=== PATIENT | female | born 1945 | race Caucasian/White ===

== ENCOUNTER → 2018-06-12 09:43 | Outpatient (CLI) | payer MEDICARE, BC, SELFPAY | PROVIDERS: PCP Family Medicine; Visit Provider Orthopaedic Surgery | DX: M17.0 Bilateral primary osteoarthritis of knee (principal) | CPT/HCPCS: 20610; 99213; J7325 ==

== ENCOUNTER → 2018-07-30 08:33 | Outpatient (BNVA) | payer MEDICARE, BC, SELFPAY | PROVIDERS: PCP Family Medicine; Referring Provider Family Medicine; Visit Provider Orthopaedic Surgery | DX: M70.62 Trochanteric bursitis, left hip (principal) | CPT/HCPCS: 20610; 99211; 99213; J1040 ==

== ENCOUNTER 2018-08-10 00:15 | Outpatient (CLI) | payer MEDICARE, BC, SELFPAY ==
--- NOTE | 2018-08-10 06:57 | DI.US_ITS ---
SYMPTOM/DIAGNOSIS: RUQ PAIN, NAUSEA, VOMITING, R10.11 ABDOMINAL ULTRASOUND: The visualized liver parenchyma is normal in appearance. There is no evidence of cholelithiasis. The common bile duct is of normal diameter. The pancreas and spleen appear intact. No renal abnormality is seen. The abdominal aorta is of normal diameter. Normal appearance of IVC. CONCLUSION: Normal abdominal ultrasound. No evidence of cholelithiasis.
[2018-08-10 08:12] LABS: Abs Immature Grans 0.01 k/cumm (0.0-0.09); Absolute Basophil Count 0.04 k/cumm (0.0-0.2); Absolute Lymphocyte Count 1.72 k/cumm (1.2-3.4); Absolute Monocyte Count 0.47 k/cumm (0.11-0.7); Absolute Neutrophil Count 1.53 k/cumm (1.2-6.7); Eosinophils % 9.6; HCT 40.9 % (36.0-46.0); Immature Grans % 0.2; Lymphocytes % 41.2; Mean Corp. HGB Concentration 31.8 g/dL (32.0-36.0); Mean Corpuscular Hemoglobin 28.5 pg (27.0-33.0); Mean Corpuscular Volume 89.7 fL (80-95); Mean Platelet Volume 10.4 fL (8.0-11.0); Monocytes % 11.3; Neutrophils % 36.7; Platelet Count 226 x1000/uL (130-400); RBC 4.56 m/cumm (4.00-5.20); RBC Distribution Width 12.9 % (11.7-14.6); White Blood Cell Count 4.17 k/cumm (4.4-10.8)
[2018-08-10 09:05] LABS: ALT 26 U/L (12-78); AST 21 U/L (15-37); Albumin 3.3 g/dL (3.4-5.0); Alkaline Phosphatase 85 U/L (46-116); Anion Gap 8.2 mmol/L (3-11); BUN 11 mg/dL (7-18); Bilirubin, Total 0.8 mg/dL (0.2-1.0); CO2 27.8 mmol/L (21.0-32.0); CREATININE 0.89 mg/dL (0.55-1.02); Calcium 8.9 mg/dL (8.5-10.1); Chloride 105 mmol/L (98-107); Glucose 79 mg/dL (70-100); Lipase 99 U/L (73-393); Potassium 4.2 mmol/L (3.5-5.1); Sodium 141 mmol/L (136-145); Total Protein 6.6 g/dL (6.4-8.2)
== END 2018-08-10 00:35 ==
PROVIDERS: PCP Family Medicine; Visit Provider Family Medicine
DX: R10.11 Right upper quadrant pain (principal); R11.2 Nausea with vomiting, unspecified
CPT/HCPCS: 36415; 80053; 83690; 76700; 85025

== ENCOUNTER 2018-09-27 12:40 | Outpatient (REF) | payer MEDICARE, BC, SELFPAY ==
[2018-09-27 15:06] LABS: Bilirubin Negative (Negative); Blood Trace-lysed (Negative); Clarity Clear; Glucose Negative (Negative); Ketones Negative (Negative); Leukocyte Esterase Large (Negative); Nitrite Negative (Negative); Specific Gravity <= 1.005 (1.005-1.025); Urobilinogen 0.2 EU/dL (Up TO 0.2); pH 6.5 (5-8)
[2018-09-27 15:11] LABS: Bacteria Moderate HPF (Negative); C & S Indicated? Yes; Casts Negative LPF (Negative); Crystals Negative HPF (Negative); Epithelial Cells Rare HPF (Negative); Mucus Negative (Negative); WBC >50 HPF (0-5)
== END 2018-09-27 13:00 ==
LOC: LBN 12:40
PROVIDERS: PCP Family Medicine; Visit Provider Family Medicine
DX: R35.0 Frequency of micturition (principal)
CPT/HCPCS: 87077; 81003; 81015; 87086; 87186

== ENCOUNTER → 2018-10-30 09:54 | Outpatient (BNVA) | payer MEDICARE, BC, SELFPAY | PROVIDERS: PCP Family Medicine; Referring Provider Family Medicine; Visit Provider Orthopaedic Surgery | DX: M70.62 Trochanteric bursitis, left hip (principal) | CPT/HCPCS: 20610; 99211; 99213; J1040 ==

== ENCOUNTER → 2018-12-11 10:10 | Outpatient (BNVA) | payer MEDICARE, BC, SELFPAY | PROVIDERS: PCP Family Medicine; Visit Provider Orthopaedic Surgery | DX: M17.11 Unilateral primary osteoarthritis, right knee (principal); M17.12 Unilateral primary osteoarthritis, left knee | CPT/HCPCS: 20610; 99211; 99213; J7325 ==

== ENCOUNTER 2018-12-17 12:01 | Outpatient (CLI) | payer MEDICARE, BC, SELFPAY ==
[2018-12-17 13:36] LABS: Hemoglobin A1C 5.5 % (4.5-6.2)
[2018-12-17 13:47] LABS: ALT 26 U/L (12-78); AST 19 U/L (15-37); Albumin 3.4 g/dL (3.4-5.0); Alkaline Phosphatase 93 U/L (46-116); Anion Gap 9.6 mmol/L (3-11); BUN 14 mg/dL (7-18); Bilirubin, Total 0.3 mg/dL (0.2-1.0); CO2 27.4 mmol/L (21.0-32.0); CREATININE 0.83 mg/dL (0.55-1.02); Calcium 8.4 mg/dL (8.5-10.1); Chloride 104 mmol/L (98-107); Glucose 102 mg/dL (70-100); Potassium 4.4 mmol/L (3.5-5.1); Sodium 141 mmol/L (136-145); TSH (W/Ref FT4) 2.04 uIU/mL (0.358-3.74); Total Protein 6.8 g/dL (6.4-8.2)
[2018-12-17 14:58] LABS: Bilirubin Negative (Negative); Blood Negative (Negative); Clarity Clear; Glucose Negative (Negative); Ketones Negative (Negative); Leukocyte Esterase Negative (Negative); Nitrite Negative (Negative); Urobilinogen 0.2 EU/dL (Up TO 0.2)
== END 2018-12-17 12:21 ==
PROVIDERS: PCP Family Medicine; Visit Provider Family Medicine
DX: R73.09 Other abnormal glucose (principal)
CPT/HCPCS: 36415; 80053; 81003; 83036; 84443

== ENCOUNTER → 2019-01-28 09:50 | Outpatient (BNVA) | payer MEDICARE, BC, SELFPAY | PROVIDERS: PCP Family Medicine; Referring Provider Family Medicine; Visit Provider Orthopaedic Surgery | DX: M70.62 Trochanteric bursitis, left hip (principal) | CPT/HCPCS: 20610; 99211; 99212; J1040 ==

== ENCOUNTER → 2019-05-16 11:15 | Outpatient (BNVA) | payer MEDICARE, BC, SELFPAY | PROVIDERS: Referring Provider Family Medicine; Visit Provider Orthopaedic Surgery | DX: M70.62 Trochanteric bursitis, left hip (principal) | CPT/HCPCS: 20610; 99211; 99213; J1040 ==

== ENCOUNTER → 2019-06-11 09:51 | Outpatient (BNVA) | payer MEDICARE, BC, SELFPAY | PROVIDERS: Referring Provider Family Medicine; Visit Provider Orthopaedic Surgery | DX: M17.11 Unilateral primary osteoarthritis, right knee (principal); M17.12 Unilateral primary osteoarthritis, left knee | CPT/HCPCS: 20610; 99211; 99213; J7325 ==

== ENCOUNTER 2019-10-29 01:22 | Outpatient (CLI) | payer MEDICARE, BC, SELFPAY ==
--- NOTE | 2019-10-29 11:27 | DI.MRI_ITS ---
EXAM: MR LUMBAR SPINE WO CLINICAL HISTORY: WORSENING LBP/WEAKNESS IN LT LEG AND INCONTINENCE, RADICULOPATHY LUMBAR REGION, M5 4.16, R32, R29.898. TECHNIQUE: Multiplanar multisequence MRI was performed. COMPARISON: MRI - LUMBAR SPINE W/WO CONT from 12/22/2015 MRI - LUMBAR SPINE WO CONTRAST from 01/17/2017 FINDINGS: There is a prominent levoscoliosis with the apex at L3-4. The conus medullaris is unremarkable. The T12-L1 through L1-2 discs show mild bulging. There is mil d bilateral neural foraminal narrowing at these levels. There are mild degenerative changes at L2-3. At L3-4, there is asymmetric narrowing of the disc, which is eccentric toward the right where there are large osteophytes. There are also right-sided facet degenerative changes, which cause severe ne ural foraminal narrowing. At L4-5, there has been a previous laminectomy. At L5-S1, there is mild l oss of disc height and broad-based disc bulging. There is a small laminectomy defect. There is mild -to-moderate central canal stenosis. There is severe left neural foraminal narrowing. No disc herni ation is seen at any level. A nerve root sheath cyst is seen at S2 on the left. IMPRESSION: Degenerative disc changes and facet degenerative changes cause multilevel neural foraminal narrowing, greatest on the left at L4-5 and L5-S1. There is [id number] central canal stenosis at L5-S1.
== END 2019-10-29 01:42 ==
PROVIDERS: PCP Family Medicine; Visit Provider Family Medicine
DX: M54.5 Low back pain (principal); M54.16 Radiculopathy, lumbar region; R32 Unspecified urinary incontinence; R29.898 Other symptoms and signs involving the musculoskeletal system; M51.17 Intervertebral disc disorders with radiculopathy, lumbosacral region; M47.27 Other spondylosis with radiculopathy, lumbosacral region; Z98.1 Arthrodesis status
CPT/HCPCS: 72148

== ENCOUNTER → 2019-12-13 09:56 | Outpatient (BNVA) | payer MEDICARE, BC, SELFPAY | PROVIDERS: PCP Family Medicine; Referring Provider Family Medicine; Visit Provider Student in an Organized Health Care Education/Training Program | DX: M17.12 Unilateral primary osteoarthritis, left knee (principal); M17.11 Unilateral primary osteoarthritis, right knee | CPT/HCPCS: 20610; 99214; J7325 ==

== ENCOUNTER 2020-03-05 08:37 | Outpatient (CLI) | payer MEDICARE, BC, SELFPAY ==
[2020-03-05 09:06] VITALS: BP 110/70; PULSE 83; RESP 17; TEMP 36.7; O2SAT 96
--- NOTE | 2020-03-05 09:30 | DI.RAD_ITS ---
EXAM: XR PAIN CLINIC SACRIOILIAC 2V CLINICAL HISTORY: Dx:Sacroiliac Joint Dysfunction TECHNIQUE: 2D and realtime digital imaging was performed. Fluoroscopy was provided in the OR COMPARISON: No exams were available for comparison FINDINGS: C-arm fluoroscopy was utilized by Dr. Mujica during SI joint injection. Hard copy shows injection in t he left SI joint. Fluoro time was 41.5 seconds. IMPRESSION: RADIATION DOSE DELIVERED: Total DLP
--- NOTE | 2020-03-05 09:55 | PDOC.PAIN_ITS ---
Pain Clinic Procedure Note Procedure Note Procedure Note: INTRA-ARTICULAR SI JOINT INJECTION SILVIO RAMIREZ has been referred to the [facility] for intra- articular SI joint injection. COMMENTS: The patient was initially scheduled for a left L5 transforaminal CRYS. In talking with her prior to the procedure, she states that 95% of her pain is at the left sacroiliac joint. She points directly at the left SIJ. We discussed changing the procedure to a left SIJ injection and she consented. Dx: Left sacroiliac joint dysfunction Patient was interviewed and the medical record reviewed. There were no medical, pharmacologic, radiographic or other structural contraindications to attempting fluoroscopically guided intra-articular SI joint injection. Risks and expected side effects as well as potential benefit of the procedure were reviewed and voiced concerns addressed. The printed consent form was signed and witnessed. Standard time-out procedure was performed. Patient was placed in the prone position on the fluoroscopy table and automated blood pressure cuff and pulse oximeter applied. The skin entry point for approaching left SI joint was identified under the most advantageous fluoroscopic view and marked. Following thorough Chlorhexadine preparation of the skin and draping and 1% lidocaine infiltration of the skin entry point and subcutaneous tissues, a 22 gauge spinal needle was placed under fluoroscopic guidance into left SI joint. Intra-articular placement was confirmed by a clear arthrogram resulting from the injection of 0.25ml Omnipaque 240, 1ml 1% lidocaine, and 40mg Depomedrol were injected intra-articularily with an initial reproduction of a significant component of the usual pain. Vital signs were stable throughout the procedure and were as recorded in the docflowsheet by the nursing staff. If given, dosages of intravenous drugs for anxiolysis and analgesia were documented in MAR. Follow up plans and appointments were discussed with the patient. Post procedure instruction was given as documented in nursing documentation and having met discharge criteria, and was discharged from the [facility]. COMMENTS: She did exceedingly well with the procedure. CC: Sallie Babcock MD, DC
[2020-03-05 09:58] VITALS: BP 121/73; PULSE 80; RESP 19; O2SAT 100
[2020-03-05] MEDS: methylPREDNISolone ACETATE 40 MG/ML VIAL IJ (09:59)
[2020-03-05] MEDS: Omnipaque 240 MG/ML 50 ML BTL IJ (10:00)
== END 2020-03-05 08:57 ==
PROVIDERS: PCP Family Medicine; Visit Provider Preventive Medicine Occupational Medicine
DX: M53.3 Sacrococcygeal disorders, not elsewhere classified (principal)
CPT/HCPCS: 27096; 72200; J1030; Q9967

== ENCOUNTER 2020-04-14 00:40 | Outpatient (CLI) | payer MEDICARE, BC, SELFPAY ==
--- NOTE | 2020-04-14 11:55 | DI.MAMMO_ITS ---
EXAM: MG MAMMO SCREENING CLINICAL HISTORY: screening, Z12.39 TECHNIQUE: Mammograms were interpreted according to the usual protocol including computer analysis w [employer] system, tomosynthesis and C-view imaging. COMPARISON: FINDINGS: The breasts are of moderate density with fairly symmetrical distribution of fibroglandular tissue. N o dominant mass or clumped microcalcification is identified in either breast. The current examinatio n is compared with the prior studies including December 2017 and there has been no gross interval change in appearance comparison with the previous examinations. IMPRESSION: No specific evidence of malignancy at this time. Routine screening examinations are suggested at yea rly intervals in this age group according to the ACS ACR guidelines. BI-RADS Cat 1 - Negative: Breast Density - Category B - Scattered areas of fibroglandular density:
== END 2020-04-14 01:00 ==
PROVIDERS: PCP Family Medicine; Visit Provider Family Medicine
DX: Z12.31 Encounter for screening mammogram for malignant neoplasm of breast (principal)
CPT/HCPCS: 77063; 77067

== ENCOUNTER 2020-04-23 07:36 | Outpatient (CLI) | payer MEDICARE, BC, SELFPAY ==
--- NOTE | 2020-04-23 06:00 | DI.RAD_ITS ---
EXAM: XR PAIN CLINIC LUMBAR SP 2V CLINICAL HISTORY: Dx: Lumbar Radiculopathy TECHNIQUE: 2D and realtime digital imaging was performed. CONTRAST MATERIAL: Refer to procedure report. COMPARISON: No exams were available for comparison FINDINGS: Fluoroscopy was provided for Dr. Mujica during the performance of a lumbar epidural steroid injection. Please refer to the procedure report for complete details. Fluoro time: 25 seconds IMPRESSION:
[2020-04-23 07:47] VITALS: BP 111/71; PULSE 78; RESP 17; TEMP 36.8; O2SAT 98
[2020-04-23 08:44] VITALS: BP 122/65; PULSE 75; RESP 13; O2SAT 99
--- NOTE | 2020-04-23 08:47 | PDOC.PAIN ---
Pain Clinic Procedure Note Procedure Note Procedure Note: LUMBAR / SACRAL TRANSFORAMINAL INJECTION at the left L5 SILVIO RAMIREZ has been referred to the [facility] for a transforaminal nerve root block and steroid injection. COMMENTS: I did review Ms. Minor's evaluation from 01/01/20 and the patient's lumbar spine MRI from 10/29/19. DX: Lumbosacral radiculopathy Patient was interviewed and the medical record reviewed. There were no medical, pharmacologic, radiographic or other structural contraindications to attempting fluoroscopically guided transforaminal nerve root block and epidural steroid injection. Risks and expected side effects as well as potential benefit of the procedure were reviewed and voiced concerns addressed. The printed consent form was signed and witnessed. Standard time-out procedure was performed. Patient was placed in the prone position on the fluoroscopy table and automated blood pressure cuff and pulse oximeter applied. Fluoroscopy was utilized to identify the left X2eessym foramen between L5 and S1. A skin cecile was made for the needle insertion site. A Chlorhexadine prep was carried out, and sterile drapes were applied. Local anesthesia was achieved in the skin and subcutaneous tissues. A 22 gauge curved tip spinal needle was then inserted, advanced with fluoroscopic guidance into the neural foramen, confirmed on the lateral view. After negative aspiration, 2 ml of Omnipaque 240 was injected confirming position in A/P and lateral views. This showed a good spread of dye transforaminally into the epidural space. There was no vascular update with contrast injection under continuous fluoroscopy. 15 mg of Dexamethasone was injected, followed by 0.5 ml of 1% Xylocaine flush for the nerve root block, as well. There was no unusual discomfort expressed.The needle was withdrawn. The patient tolerated the procedure well. A Band-Aid was applied. Vital signs were stable throughout the procedure and were as recorded in nursing records. If given, dosages of intravenous drugs for anxiolysis and analgesia were documented in nursing records. Follow up plans and appointments were discussed. Post procedure instruction was given as documented in nursing records and patient was discharged in the care of an identified fire truck driver. COMMENTS:She tolerated the procedure well. If she has good relief with this procedure, it can be completed up to 3 times per 12 months as needed. CC: Sallie Babcock MD, DC
[2020-04-23] MEDS: Dexamethasone Sod. Phos./Pres-Free 10 MG/ML VIAL IJ (08:48)
[2020-04-23] MEDS: Omnipaque 240 MG/ML 50 ML BTL IJ (08:48)
== END 2020-04-23 07:56 ==
PROVIDERS: PCP Family Medicine; Visit Provider Preventive Medicine Occupational Medicine
DX: M54.17 Radiculopathy, lumbosacral region (principal)
CPT/HCPCS: 64483; 72100; Q9967

== ENCOUNTER → 2020-05-18 14:44 | Outpatient (BNVA) | payer MEDICARE, BC, SELFPAY | PROVIDERS: PCP Family Medicine; Referring Provider Family Medicine; Visit Provider Student in an Organized Health Care Education/Training Program | DX: M25.552 Pain in left hip (principal); M70.62 Trochanteric bursitis, left hip | CPT/HCPCS: 20610; 99213; J1040 ==

== ENCOUNTER 2020-06-04 03:25 | Outpatient (CLI) | payer MEDICARE, BC, SELFPAY ==
[2020-06-04 12:29] LABS: Hemoglobin A1C 5.6 % (3.8-5.6)
[2020-06-04 12:57] LABS: TSH (W/Ref FT4) 2.41 uIU/mL (0.36-3.74); Vitamin B12 1843 pg/mL (193-986)
== END 2020-06-04 03:45 ==
PROVIDERS: PCP Family Medicine; Visit Provider Family Medicine
DX: E11.9 Type 2 diabetes mellitus without complications (principal); F41.9 Anxiety disorder, unspecified; M85.80 Other specified disorders of bone density and structure, unspecified site; G62.9 Polyneuropathy, unspecified
CPT/HCPCS: 80048; 82306; 82607; 83036; 84443

== ENCOUNTER 2020-06-15 10:39 | Outpatient (CLI) | payer MEDICARE, BC, SELFPAY ==
--- NOTE | 2020-06-15 10:15 | DI.RAD_ITS ---
EXAM: XR KNEE LT 4V AP,LAT,CRYSTAL,PAT CLINICAL HISTORY: left knee pain TECHNIQUE: COMPARISON: CR RIGHT KNEE 3 VIEWS from 08/26/2013 FINDINGS: Four views were obtained. There appears to be slight narrowing of the cartilaginous joint space of t he patello femoral joint laterally and there is slight lateral patellar subluxation. There is modera te narrowing of the medial tibial femoral cartilaginous joint space. There are moderate marginal osteophytes seen involving the tibial femoral and patello femoral joints. IMPRESSION: Degenerative changes most marked involving medial tibiofemoral joint RADIATION DOSE DELIVERED: Total DLP
== END 2020-06-15 10:59 ==
PROVIDERS: PCP Family Medicine; Referring Provider Family Medicine; Visit Provider Student in an Organized Health Care Education/Training Program
DX: M17.12 Unilateral primary osteoarthritis, left knee (principal); M17.11 Unilateral primary osteoarthritis, right knee
CPT/HCPCS: 20610; 99213; 73564; J7325

== ENCOUNTER → 2020-07-14 08:17 | Outpatient (BNVA) | payer MEDICARE, BC, SELFPAY | PROVIDERS: PCP Family Medicine; Referring Provider Family Medicine; Visit Provider Psychiatry & Neurology Neurology | DX: M48.061 Spinal stenosis, lumbar region without neurogenic claudication (principal); M54.16 Radiculopathy, lumbar region; M21.372 Foot drop, left foot | CPT/HCPCS: 95885; 95886; 95909; 99204; 99215 ==

== ENCOUNTER → 2020-08-20 09:16 | Outpatient (BNVA) | payer MEDICARE, BC, SELFPAY | PROVIDERS: PCP Family Medicine; Referring Provider Family Medicine; Visit Provider Student in an Organized Health Care Education/Training Program | DX: M70.62 Trochanteric bursitis, left hip (principal) | CPT/HCPCS: 99213 ==

== ENCOUNTER 2020-09-11 04:19 | Outpatient (CLI) | payer MEDICARE, BC, SELFPAY ==
--- NOTE | 2020-09-11 14:10 | DI.RAD_ITS ---
EXAM: XR LUMBAR SPINE COMPLETE CLINICAL HISTORY: LT LEG PAIN,NUMBNESS, BACK PAIN,R20. TECHNIQUE: 2D digital imaging was performed. COMPARISON: No exams were available for comparison FINDINGS: Flexion and extension views were performed in addition to the routine views. There are no compressi on fractures. No spondylolysis or spondylolisthesis is seen. There is no subluxation with flexion o r extension. There has been previous laminectomy at L4 and L5. There are severe degenerative change s at L3-4 on the right contributing to levoscoliosis. There are prominent endplate osteophytes at th is level on the right. Smaller osteophytes are seen at the remaining levels. Remaining disc spaces are relatively well maintained. IMPRESSION: Degenerative changes greatest at L3-4. Scoliosis. Prior laminectomy.
== END 2020-09-11 04:39 ==
PROVIDERS: PCP Family Medicine; Visit Provider Physician Assistant Medical
DX: M47.816 Spondylosis without myelopathy or radiculopathy, lumbar region (principal); R20.0 Anesthesia of skin; M41.9 Scoliosis, unspecified
CPT/HCPCS: 72110

== ENCOUNTER 2020-09-30 01:42 | Outpatient (CLI) | payer MEDICARE, BC, SELFPAY ==
--- NOTE | 2020-09-30 | DI.MRI_ITS ---
EXAM: MR LUMBAR SPINE WO CLINICAL HISTORY: LEG NUMBNESS,R20.0,LT LEG PAIN, FOOT DROP. TECHNIQUE: Multiplanar multisequence MRI of the Lumbar spine was performed. COMPARISON: MR MR LUMBAR SPINE WO from 10/29/2019 MR MR LUMBAR SPINE WO from 10/29/2019 FINDINGS: Again noted scoliosis convex left PE Conus medullaris is at the L1 level. There is no evidence of conus mass nor subjacent clumping of in trathecal nerve roots to suggest arachnoiditis. 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 Bones:There are no fractures nor ominous osseous lesions in the lumbar vertebral bodies. With respect to the individual levels... T12-L1: Normal disc height. Mild annular bulging. No prominent central canal stenosis. Mild bilate ral foraminal stenosis. L1-2: Normal disc height and signal. No disc herniation nor central canal stenosis.No foraminal steno sis. No significant facet arthropathy L2-3: Normal disc height. No disc herniation nor central canal stenosis.No foraminal stenosis.No face t arthropathy. L3-4: At this level there is again noted advanced disc space narrowing, more so on the right than on the left side of this disc space. There is annular bulging at this level which flattens the anterior aspect the thecal sac, unchanged. No new distinct disc herniation. There is moderate right-sided f oraminal stenosis which is mostly vertical foraminal stenosis due to the more prominent disc height l oss on the right side of the disc space. Only mild if any significant left-sided foraminal stenosis. The amount of degenerative change in the right facet joint at this level is more than the left. Findings at this level are similar to the October 2019 study. L4-5: Normal disc height.. Broad annular bulging also evident at this level. No central canal steno sis at this level which has had prior laminectomy. The central spinal canal is capacious. Mild dege nerative changes in the facet joints. There is mild-moderate foraminal stenosis on the left side at this level. No significant foraminal stenosis on the right side at this level. Some degenerative ch anges are noted in the left facet joint. Milder degenerative changes in the right facet joint. L5-S1: Disc space narrowing on the left side of this disc space with lateral left osteophytes again n oted at this level. Central canal dimensions are lower normal. Are, this despite bulging annulus. The annulus bulges into the exiting left neural foramen at this level. There is moderate-severe left -sided foraminal stenosis due to the disc height loss and with impingement of the exiting nerve root between the subjacent bulging annulus and the overlying left L5 pedicle. No foraminal stenosis on th e opposite-right side. This finding is also unchanged from October 2019. Soft tissues: The visualized SI joints and sacrum appear unremarkable. Paraspinal soft tissues appear unremarkable IMPRESSION: 1. Minimal if any significant change compared to the prior MRI scan of October 2019. Again noted is levo scoliosis with apex at L3-4 level. Previous laminectomy at L4-5 level. Most severe foraminal s tenosis is on the left side at L5-S1 level. There is also significant foraminal stenosis on the righ t side at L3-4 level. No prominent central canal stenosis. Mild central canal stenosis again noted at L5-S1. 2. 3. 4. DATA REPOSITORY:
== END 2020-09-30 02:02 ==
PROVIDERS: PCP Family Medicine; Visit Provider Neurological Surgery
DX: R20.0 Anesthesia of skin (principal); M41.86 Other forms of scoliosis, lumbar region; M48.07 Spinal stenosis, lumbosacral region; M48.061 Spinal stenosis, lumbar region without neurogenic claudication
CPT/HCPCS: 72148

== ENCOUNTER → 2020-10-08 10:04 | Outpatient (BNVA) | payer MEDICARE, BC, SELFPAY | PROVIDERS: PCP Family Medicine; Referring Provider Family Medicine; Visit Provider Nurse Practitioner Gerontology | DX: N39.46 Mixed incontinence (principal) | CPT/HCPCS: 81003; 99204; 99215 ==

== ENCOUNTER 2020-10-30 03:52 | Outpatient (CLI) | payer MEDICARE, BC, SELFPAY ==
[2020-10-30 12:11] LABS: ESR 17 mm/hr (0-30)
[2020-10-30 12:13] LABS: ALT 20 U/L (14-59); AST 18 U/L (15-37); Albumin 3.5 g/dL (3.4-5.0); Alkaline Phosphatase 111 U/L (46-116); Anion Gap 7.3 mmol/L (3-11); BUN 10 mg/dL (7-18); Bilirubin, Total 0.5 mg/dL (0.2-1.0); C-Reactive Protein 0.28 mg/dL (0.0-0.3); CO2 28.7 mmol/L (21.0-32.0); CREATININE 0.88 mg/dL (0.55-1.02); Chloride 106 mmol/L (98-107); Glucose 92 mg/dL (74-106); Potassium 4.1 mmol/L (3.5-5.1); Sodium 142 mmol/L (136-145); Total Protein 6.8 g/dL (6.4-8.2)
[2020-11-02 10:21] LABS: Lyme Ab w Rflx to Lyme Confirm Negative (Negative)
[2020-11-16 16:22] LABS: ACh Receptor (Muscle) Binding 2.34 nmol/L (<=0.02)
== END 2020-10-30 04:12 ==
PROVIDERS: PCP Family Medicine; Visit Provider Family Medicine
DX: G70.00 Myasthenia gravis without (acute) exacerbation (principal); H49.00 Third [oculomotor] nerve palsy, unspecified eye; H02.409 Unspecified ptosis of unspecified eyelid
CPT/HCPCS: 36415; 80053; 83519; 84182; 85652; 86341; 83520; 86140; 86618

== ENCOUNTER 2020-11-10 01:33 | Outpatient (CLI) | payer MEDICARE, BC, SELFPAY ==
--- NOTE | 2020-11-10 07:45 | DI.MRI_ITS ---
EXAM: MR ANGIO NECK WO CLINICAL HISTORY: myasthenia gravis/ ptosis/ ? CN III palsy,H49.03. TECHNIQUE: Multiplanar multisequence MRA of the Neck was performed. COMPARISON: No exams were available for comparison FINDINGS: Examination was performed without contrast due to lack of IV access despite multiple attempts. Common Carotid: Right: No dissection, occlusion or significant stenosis. Left: No dissection, occlusion or significant stenosis. External Carotid: Right: No evidence of occlusion or significant stenosis. Left: No evidence of occlusion or significant stenosis. Internal Carotid: Right: No dissection, occlusion or significant stenosis. Left: No dissection, occlusion or significant stenosis. Vertebral Artery: Right: No dissection, occlusion or significant stenosis. Left: No dissection, occlusion or significant stenosis. The visualized paraspinal soft tissues are unremarkable. IMPRESSION: No evidence of dissection, occlusion or significant stenosis. DATA REPOSITORY:
--- NOTE | 2020-11-10 10:00 | DI.MRI_ITS ---
CLINICAL HISTORY: ? myasthenia gravis/ ptosis of eyelid,NERVE PALSY BILAT,H49.03. TECHNIQUE: Multiplanar multisequence MRA of the brain was performed. COMPARISON: None. FINDINGS: Carotid Arteries: No aneurysm, occlusion or significant stenosis. Anterior Cerebral Arteries: Right: No aneurysm, occlusion or significant stenosis. Left: No aneurysm, occlusion or significant stenosis. Middle Cerebral Arteries: Right: No aneurysm, occlusion or significant stenosis. Left: No aneurysm, occlusion or significant stenosis. Posterior Cerebral Arteries: Right: No aneurysm, occlusion or significant stenosis. Left: No aneurysm, occlusion or significant stenosis. Vertebral Arteries: Right: No aneurysm, occlusion or significant stenosis. Left: No aneurysm, occlusion or significant stenosis. Basilar Artery: No aneurysm, occlusion or significant stenosis. IMPRESSION: Normal MRA examination of the [place]. DATA REPOSITORY:
== END 2020-11-10 01:53 ==
PROVIDERS: PCP Family Medicine; Visit Provider Family Medicine
DX: H49.03 Third [oculomotor] nerve palsy, bilateral (principal)
CPT/HCPCS: 70544; 70547; 82565

== ENCOUNTER 2020-11-18 11:18 | Outpatient (REF) | payer MEDICARE, BC, SELFPAY ==
[2020-11-18 14:16] LABS: Bilirubin Negative (Negative); Blood Trace-intact (Negative); Clarity Sl Cloudy (Clear); Glucose Negative (Negative); Ketones Negative (Negative); Leukocyte Esterase Moderate (Negative); Nitrite Negative (Negative); Specific Gravity 1.025 (1.005-1.025); Urobilinogen 0.2 EU/dL (Up TO 0.2)
[2020-11-18 14:29] LABS: Epithelial Cells Few HPF (Negative); WBC >50 HPF (0-5)
[2020-11-18 14:30] LABS: Bacteria Few HPF (Negative); C & S Indicated? Yes; Casts Negative LPF (Negative); Crystals Few Calcium Oxalate HPF (Negative); Mucus Trace (Negative); Other Cells Few Renal (Negative)
== END 2020-11-18 11:38 ==
LOC: LBN 11:18
PROVIDERS: PCP Family Medicine; Visit Provider Family Medicine
DX: R30.0 Dysuria (principal)
CPT/HCPCS: 81003; 81015; 87086

== ENCOUNTER → 2020-11-19 13:08 | Outpatient (BNVA) | payer MEDICARE, BC, SELFPAY | PROVIDERS: PCP Family Medicine; Referring Provider Family Medicine; Visit Provider Psychiatry & Neurology Neurology | DX: M48.061 Spinal stenosis, lumbar region without neurogenic claudication (principal); M21.372 Foot drop, left foot; G70.00 Myasthenia gravis without (acute) exacerbation; R32 Unspecified urinary incontinence | CPT/HCPCS: 99215; G2212 ==

== ENCOUNTER 2020-11-20 03:00 | Outpatient (CLI) | payer MEDICARE, BC, SELFPAY ==
--- NOTE | 2020-11-20 07:56 | DI.CT_ITS ---
EXAM: CT CHEST W CLINICAL HISTORY: r/o thyoma, new dx myasthenia gravis,H49.00,G70.00. TECHNIQUE: Multi planar reconstructions were performed. CONTRAST MATERIAL: Omnipaque 350; 70 cc COMPARISON: No exams were available for comparison FINDINGS: CHEST: LUNGS: Mild benign-appearing increased markings in the lingular segment of the left lung. No conflue nt infiltrates nor pleural effusions. No ominous pulmonary nodules. No significant focal findings i n the trachea and mainstem bronchi and there is no bronchiectasis. MEDIASTINUM: There is no hilar nor mediastinal adenopathy. Visualized thyroid unremarkable.There is n o evidence of anterior mediastinal mass to suggest presence of a thymoma, given the history here. CARDIAC: Heart size is normal. There is no pericardial effusion.Caliber of the thoracic aorta is wit hin normal limits. VISUALIZED UPPER ABDOMEN:There are no significant adrenal masses. OSSEOUS: No significant osseous lesions.. IMPRESSION: 1. No significant pulmonary findings nor pleural effusions nor intrathoracic adenopathy. 2. No evidence of thymoma nor other mass in the mediastinum. Visualized thyroid appears unremarkable . 3. No osseous lesions evident in the thorax. RADIATION DOSE DELIVERED: 426.4mGy.cm Total DLP DATA REPOSITORY: All CT scans at this facility are submitted to the National Radiology Data Registry (NRDR) Dose Index Registry (DIR) with the [employer] (ACR). RADIATION OPTIMIZATION: All CT scans at this facility use at least one of these dose optimization te chniques: automated exposure control; mA and/or kV adjustment per patient size (includes targeted exa ms where dose is matched to clinical indication); or iterative reconstruction.
[2020-11-20] MEDS: Omnipaque 350 MG/ML 100 ML BTL 70 ML IJ (10:33)
== END 2020-11-20 03:20 ==
PROVIDERS: PCP Family Medicine; Visit Provider Family Medicine
DX: G70.00 Myasthenia gravis without (acute) exacerbation (principal); H49.03 Third [oculomotor] nerve palsy, bilateral
CPT/HCPCS: 71260; J3490

== ENCOUNTER 2020-12-08 09:16 | Outpatient (CLI) | payer MEDICARE, BC, SELFPAY ==
--- NOTE | 2020-12-08 09:15 | RT.EKG_ITS ---
APPROVED REPORT Exam: Resting ECG Patient Location: O HR:76 bpm ECG Measurements Heart Rate 76 AXIS PA 157 P 57 QRSd 127 QRS 71 QT 397 T 26 QTc 447 Conclusion Sinus rhythm...normal P axis, V-rate 60- 99 Right bundle branch block...QRSd>120, terminal axis(90,270)
== END 2020-12-08 09:17 | disposition home or self-care (01) ==
LOC: DI.CM 09:16
PROVIDERS: PCP Family Medicine; Visit Provider Family Medicine
DX: I45.10 Unspecified right bundle-branch block (principal)
CPT/HCPCS: 93010

== ENCOUNTER 2020-12-10 02:42 | Outpatient (CLI) | payer MEDICARE, BC, SELFPAY ==
[2020-12-10 12:20] LABS: HCT 40.8 % (36.0-46.0); HGB 12.9 g/dL (11.2-15.7); MCH 28.9 pg (27.0-33.0); MCHC 31.6 % (32.0-36.0); MCV 91.3 fL (80-95); MPV 11.3 fL (8.0-11.0); Platelet Count 232 10^3/uL (130-400); RBC 4.47 10^6/uL (3.93-5.22); RDW 13.5 % (11.7-14.6); RDW-SD 46.1 fL; WBC 4.86 10^3/uL (4.4-10.8)
[2020-12-10 12:37] LABS: Anion Gap 8.8 mmol/L (3-11); BUN 10 mg/dL (7-18); CO2 28.2 mmol/L (21.0-32.0); CREATININE 0.8 mg/dL (0.55-1.02); Calcium 9.3 mg/dL (8.5-10.1); Chloride 106 mmol/L (98-107); Glucose 114 mg/dL (74-106); Potassium 4.1 mmol/L (3.5-5.1); Sodium 143 mmol/L (136-145)
== END 2020-12-10 02:43 | disposition home or self-care (01) ==
LOC: LOS 02:42
PROVIDERS: PCP Family Medicine; Visit Provider Family Medicine
DX: M54.5 Low back pain (principal); G89.29 Other chronic pain; M48.061 Spinal stenosis, lumbar region without neurogenic claudication; Z01.818 Encounter for other preprocedural examination
CPT/HCPCS: 36415; 80048; 85027

== ENCOUNTER → 2021-01-14 11:10 | Outpatient (BNVA) | payer MEDICARE, BC, SELFPAY | PROVIDERS: PCP Family Medicine; Visit Provider Psychiatry & Neurology Neurology | DX: G70.00 Myasthenia gravis without (acute) exacerbation (principal); M48.061 Spinal stenosis, lumbar region without neurogenic claudication; M21.372 Foot drop, left foot; R32 Unspecified urinary incontinence | CPT/HCPCS: 99214 ==

== ENCOUNTER 2021-01-28 01:22 | Outpatient (CLI) | payer MEDICARE, BC, SELFPAY ==
--- NOTE | 2021-01-28 10:31 | DI.RAD_ITS ---
EXAM: XR LUMBAR SPINE 1V ONLY CLINICAL HISTORY: S/P LUMBAR FUSION,Z98.1. TECHNIQUE: 2D digital imaging was performed. COMPARISON: CR XR LUMBAR SPINE COMPLETE from 09/11/2020 CR XR LUMBAR SPINE COMPLETE from 09/11/2020 MR MR LUMBAR SPINE WO from 09/30/2020 FINDINGS: A single lateral view was performed. Posterior fusion hardware is now seen spanning L3 through L5. Disc spaces are noted at L4-5 and L5-S1. Severe narrowing of the L3-4 disc space is again noted. No compression fractures are seen. IMPRESSION: Postsurgical and degenerative changes. DATA REPOSITORY: RADIATION DOSE DELIVERED:
== END 2021-01-28 01:42 ==
PROVIDERS: PCP Family Medicine; Visit Provider Physician Assistant Medical
DX: Z98.1 Arthrodesis status (principal)
CPT/HCPCS: 72020

== ENCOUNTER → 2021-02-25 14:31 | Outpatient (BNVA) | payer MEDICARE, BC, SELFPAY | PROVIDERS: PCP Family Medicine; Referring Provider Family Medicine; Visit Provider Nurse Practitioner Gerontology | DX: N39.46 Mixed incontinence (principal) | CPT/HCPCS: 99213 ==

== ENCOUNTER 2021-03-23 02:02 | Outpatient (CLI) | payer MEDICARE, BC, SELFPAY ==
--- NOTE | 2021-03-23 10:59 | DI.RAD_ITS ---
Exam(s) XR LUMBAR SPINE COMPLETE EXAM: XR LUMBAR SPINE COMPLETE CLINICAL HISTORY: S/P LUMBAR FUSION,Z98.1 TECHNIQUE: COMPARISON: CR XR LUMBAR SPINE COMPLETE from 09/11/2020 CR XR LUMBAR SPINE 1V ONLY from 01/28/2021 FINDINGS: Multiple views were obtained including flexion and extension laterals. There are Linder rods and disc prostheses in place at L4-5 and L5-S1. Alignment appears essentially unchanged in comparison w ith lateral view obtained on January 28. Marked lumbar scoliosis again noted. Intervertebral disc spaces appear fairly well maintained. Mode rate degenerative hypertrophic changes of the facet joints noted at multiple levels. Flexion and ext ension views are grossly unremarkable. IMPRESSION: No evidence of acute change. RADIATION DOSE DELIVERED: Total DLP
== END 2021-03-23 02:22 ==
PROVIDERS: PCP Family Medicine; Visit Provider Neurological Surgery
DX: M54.5 Low back pain (principal); Z98.1 Arthrodesis status; M41.86 Other forms of scoliosis, lumbar region
CPT/HCPCS: 72110

== ENCOUNTER → 2021-07-15 09:49 | Outpatient (BNVA) | payer MEDICARE, BC, SELFPAY | PROVIDERS: PCP Family Medicine; Referring Provider Family Medicine; Visit Provider Psychiatry & Neurology Neurology | DX: G70.00 Myasthenia gravis without (acute) exacerbation (principal); M48.061 Spinal stenosis, lumbar region without neurogenic claudication; M21.372 Foot drop, left foot; R32 Unspecified urinary incontinence | CPT/HCPCS: 99213 ==

== ENCOUNTER 2021-07-16 02:16 | Outpatient (CLI) | payer MEDICARE, BC, SELFPAY ==
[2021-08-24 12:08] LABS: Misc Referral (MAYO) See Comments
== END 2021-07-16 02:17 | disposition home or self-care (01) ==
LOC: LOS 02:19
PROVIDERS: PCP Family Medicine; Visit Provider Psychiatry & Neurology Neurology
DX: G70.00 Myasthenia gravis without (acute) exacerbation (principal)
CPT/HCPCS: 36415; 86255; 83519; 83520

== ENCOUNTER 2021-12-13 02:23 | Outpatient (CLI) | payer MEDICARE, BC, SELFPAY ==
[2021-12-13 11:38] LABS: Source Nasal/Nares
[2021-12-13 17:58] LABS: COVID-19 PCR Negative (Negative)
== END 2021-12-13 02:24 | disposition home or self-care (01) ==
PROVIDERS: PCP Family Medicine; Visit Provider Obstetrics & Gynecology Gynecology
DX: Z20.822 Contact with and (suspected) exposure to COVID-19 (principal); Z01.818 Encounter for other preprocedural examination
CPT/HCPCS: 87635; U0005

== ENCOUNTER 2021-12-23 03:48 | Outpatient (CLI) | payer MEDICARE, BC, SELFPAY ==
--- NOTE | 2021-12-23 10:39 | DI.RAD_ITS ---
Exam(s) XR LUMBAR SPINE FLEX/EXT ONLY EXAM: XR LUMBAR SPINE FLEX/EXT ONLY CLINICAL HISTORY: SPINAL STENOSIS W/ NEUROGENIC CLAUDICATION M48.062 TECHNIQUE: 2D digital imaging was performed. Flexion and extension lateral views. COMPARISON: CR XR LUMBAR SPINE COMPLETE from 03/23/2021 FINDINGS: Posterior fusion hardware spanning L4 through S1. Disc spacers at L4-5 and L5-S1. Hardware appears in tact and unchanged in position. Severe disc space narrowing is again seen at L3-4. No subluxation wit h flexion or extension. IMPRESSION: Stable appearance posterior fusion hardware at the lower lumbar spine.
== END 2021-12-23 04:08 ==
PROVIDERS: PCP Family Medicine; Visit Provider Neurological Surgery
DX: M48.062 Spinal stenosis, lumbar region with neurogenic claudication (principal); Z98.890 Other specified postprocedural states
CPT/HCPCS: 72120

== ENCOUNTER 2021-12-28 17:03 | Outpatient (REF) | payer MEDICARE, BC, SELFPAY ==
[2021-12-28 21:24] LABS: Bilirubin Negative (Negative); Blood Trace-lysed (Negative); Clarity Cloudy (Clear); Glucose Negative (Negative); Ketones Negative (Negative); Leukocyte Esterase Moderate (Negative); Nitrite Positive (Negative); Specific Gravity >= 1.030 (1.005-1.025); Urobilinogen 0.2 EU/dL (Up TO 0.2)
[2021-12-28 21:34] LABS: Epithelial Cells Moderate HPF (Negative); WBC >50 HPF (0-5)
[2021-12-28 21:35] LABS: Bacteria Many HPF (Negative); C & S Indicated? Yes
== END 2021-12-28 17:04 | disposition home or self-care (01) ==
LOC: LBN 17:03
PROVIDERS: PCP Family Medicine; Visit Provider Physician Assistant
DX: R39.9 Unspecified symptoms and signs involving the genitourinary system (principal)
CPT/HCPCS: 87077; 81003; 81015; 87086; 87186

== ENCOUNTER 2022-01-03 10:05 | Outpatient (CLI) | payer MEDICARE, BC, SELFPAY ==
[2022-01-03 13:38] LABS: ALT 21 U/L (14-59); AST 19 U/L (15-37); Albumin 3.5 g/dL (3.4-5.0); Alkaline Phosphatase 127 U/L (46-116); Anion Gap 6.5 mmol/L (3-11); BUN 11 mg/dL (7-18); Bilirubin, Total 0.3 mg/dL (0.2-1.0); CO2 28.5 mmol/L (21.0-32.0); CREATININE 0.8 mg/dL (0.55-1.02); Chloride 106 mmol/L (98-107); Glucose 89 mg/dL (74-106); Potassium 4.8 mmol/L (3.5-5.1); Sodium 141 mmol/L (136-145); Total Protein 7.2 g/dL (6.4-8.2)
== END 2022-01-03 10:06 | disposition home or self-care (01) ==
LOC: LBO 10:06
PROVIDERS: PCP Family Medicine; Visit Provider Family Medicine
DX: G70.00 Myasthenia gravis without (acute) exacerbation (principal); N39.0 Urinary tract infection, site not specified
CPT/HCPCS: 36415; 80053

== ENCOUNTER 2022-01-10 02:31 | Outpatient (RCR) | payer MEDICARE, BC, SELFPAY ==
[2022-01-04] MEDS: Normal Saline Flush 10 ML SYR IVP (13:16)
[2022-01-05] MEDS: Normal Saline Flush 10 ML SYR IVP (13:17)
[2022-01-05 17:44] LABS: Tobramycin, Random 9.4 ug/mL (See Note)
[2022-01-06] MEDS: Normal Saline Flush 10 ML SYR IVP (13:18)
[2022-01-07] MEDS: Normal Saline Flush 10 ML SYR IVP (13:43)
[2022-01-08] MEDS: Normal Saline Flush 10 ML SYR IVP (15:14)
[2022-01-10] MEDS: Normal Saline Flush 10 ML SYR IVP (13:36)
== END 2022-01-20 23:59 | disposition home or self-care (01) ==
LOC: INF 02:31
PROVIDERS: PCP Family Medicine; Visit Provider Family Medicine
DX: N39.0 Urinary tract infection, site not specified (principal); B96.5 Pseudomonas (aeruginosa) (mallei) (pseudomallei) as the cause of diseases classified elsewhere; G70.00 Myasthenia gravis without (acute) exacerbation
CPT/HCPCS: 96365; 96366; 80200

== ENCOUNTER → 2022-01-13 09:42 | Outpatient (BNVA) | payer MEDICARE, BC, SELFPAY | PROVIDERS: PCP Family Medicine; Visit Provider Psychiatry & Neurology Neurology | DX: M48.061 Spinal stenosis, lumbar region without neurogenic claudication (principal); M21.372 Foot drop, left foot; R32 Unspecified urinary incontinence; G70.00 Myasthenia gravis without (acute) exacerbation | CPT/HCPCS: 99214 ==

== ENCOUNTER 2022-03-17 11:58 | Outpatient (CLI) | payer MEDICARE, BC, SELFPAY ==
--- NOTE | 2022-03-17 11:45 | DI.RAD_ITS ---
Exam(s) XR KNEE RT 3V AP,LAT,CRYSTAL EXAM: XR KNEE RT 3V AP,LAT,CRYSTAL CLINICAL HISTORY: right knee pain. TECHNIQUE: 2D digital imaging was performed of the right knee. Three views obtained. AP, lateral an d PA tunnel views were obtained. COMPARISON: CR XR KNEE LT 4V AP,LAT,CRYSTAL,PAT from 06/15/2020 FINDINGS: BONES: No acute fracture is present. No bony destructive lesion is seen. There is a small enthesophyt e at the superior patella. JOINTS: The knee is normally aligned. There is a small joint effusion. Tricompartment degenerative c hanges are seen predominantly involving periarticular spurring. SOFT TISSUE: Normal. IMPRESSION: Mild degenerative changes of the knee. DATA REPOSITORY: RADIATION DOSE DELIVERED:
== END 2022-03-17 11:59 | disposition home or self-care (01) ==
LOC: DIORS 11:58
PROVIDERS: PCP Family Medicine; Referring Provider Family Medicine; Visit Provider Physician Assistant
DX: M17.11 Unilateral primary osteoarthritis, right knee (principal); M17.12 Unilateral primary osteoarthritis, left knee
CPT/HCPCS: 20610; 73562; J7325

== ENCOUNTER 2022-03-20 12:01 | Emergency (ER) | payer MEDICARE, BC, SELFPAY ==
[2022-03-20 12:14] VITALS: BP 142/74; PULSE 78; RESP 16; TEMP 37.2; O2SAT 96
--- NOTE | 2022-03-20 12:30 | DI.RAD_ITS ---
Exam(s) XR KNEE RT 4V+ EXAM: XR KNEE RT 4V+ CLINICAL HISTORY: fall. TECHNIQUE: 2D digital imaging was performed of the right knee. Four views obtained. AP, lateral, Me rchant and PA tunnel views were obtained. COMPARISON: CR XR KNEE RT 3V AP,LAT,CRYSTAL from 03/17/2022 FINDINGS: BONES: No acute fracture is present. No bony destructive lesion is seen. JOINTS: The knee is normally aligned. There is a small joint effusion. Mild tricompartment degenerat keith changes are again seen. SOFT TISSUE: Normal. IMPRESSION: No acute fracture or dislocation. DATA REPOSITORY: RADIATION DOSE DELIVERED:
--- NOTE | 2022-03-20 12:30 | DI.RAD_ITS ---
Exam(s) XR HIP RT COMPLETE AP PELVIS EXAM: XR HIP RT COMPLETE AP PELVIS CLINICAL HISTORY: fall pain. TECHNIQUE: 2D digital imaging was performed of the right hip. Three images were obtained. AP pelvis and lateral right hip views were obtained. FINDINGS: BONES: No acute fracture is present. No bony destructive lesion is seen. Postsurgical changes in the lumbar spine. Surgical clips are seen in the pelvis. JOINTS: No dislocation present. SOFT TISSUE: Normal. IMPRESSION: No acute fracture or dislocation. DATA REPOSITORY: RADIATION DOSE DELIVERED:
[2022-03-20] MEDS: HYDROcodone 5/Acetaminophen 325 TAB PO ×2 (12:43→14:10)
--- NOTE | 2022-03-20 13:46 | DI.VRAD_ITS ---
PROCEDURE INFORMATION: Exam: XR Right Knee Exam date and time: 03/20/2022 1:21 PM Age: 77 years old Clinical indication: Injury or trauma; Fall; Blunt trauma; Knee; Right TECHNIQUE: Imaging protocol: XR Right knee. Views: 4 or more views. COMPARISON: CR XR KNEE RT 3V AP,LAT,CRYSTAL 03/17/2022 11:58 AM FINDINGS: Bones/joints: Medial compartment narrowing. Narrowed medial patellofemoral joint. Small tricompartment marginal osteophytes. Soft tissues: Minimal fluid or synovitis IMPRESSION: No acute findings. Degenerative arthritis right knee Dictated and Authenticated by: Jazz Hahn MD. Ordering:ESTIVEN Pool MD
--- NOTE | 2022-03-20 13:47 | DI.VRAD_ITS ---
PROCEDURE INFORMATION: Exam: XR Right Hip Exam date and time: 03/20/2022 1:17 PM Age: 77 years old Clinical indication: Injury or trauma; Fall; Blunt trauma (contusions or hematomas); Right; Hip TECHNIQUE: Imaging protocol: XR Right hip. Views: 2 or 3 views hip with pelvis when performed. COMPARISON: CR XR LUMBAR SPINE FLEX/EXT ONLY 12/23/2021 10:37 AM FINDINGS: Bones/joints: Posterior waylon and pedicle screw fusion of L4 through S1. Lower lumbar curve, convex to the left. The bones are demineralized. Soft tissues: Unremarkable. Intraperitoneal space: Surgical clips in the lower abdomen and pelvis. IMPRESSION: No acute findings Dictated and Authenticated by: Jazz Hahn MD. Ordering:ESTIVEN Pool MD
--- NOTE | 2022-03-20 14:30 | W.ED.GENAD ---
Discharge Plan Disposition Patient Disposition: HOME Condition: Stable Discharge Details Clinical Impression: Injury of knee, right Primary Care Provider: Sallie Babcock ED Provider: Yrn Dumont Home Meds and New Rx's Prescriptions: New hydrocodone-acetaminophen 5-325 mg tablet 1 tab PO Q8H PRNQty: 8 0RF Continued vit C,E,Zn,Mp-ldyai9-jlg-zeax 250-2.5-0.5 mg capsule PO Metamucil 3.4 gram/5.4 gram powder 1 tbs PO DAILY ibuprofen 200 MG capsule 2 tab PO TID PRN ryocscwwybc-utyggijvi-ecd C-Mn 1 EACH tablet 1 ea PO DAILY FISH OIL SOFTGEL 1 EACH capsule 1 ea PO DAILY L.acidoph, paracasei,B. lactis 1 EACH capsule 1 cap PO DAILY acetaminophen [Mapap Extra Strength] 500 MG tablet 1,000 mg PO BID PRN Discharge Instructions Instructions: Knee Pain (ED) Additional Instructions: Hydrocodone as directed, this medication might cause drowsiness and/or constipation. You may want to take an ijqq-wqm-ujxioyd stool softener while taking this medication. Wear knee immobilizer, use walker as needed, advance activity as tolerated. Rest, elevate, cool compresses every 2 hours for 20 minutes. Please watch for new or worsening symptoms and return to the ER for any concerns. Lastly, I recommend contacting the office of Dr. Albert first thing Monday to discuss her ER visit need for outpatient reevaluation Referrals: Gigi Albert MD [ [facility] STAFF PHYSICIAN] - Discharge Data Discharge Date/Time-TO BE ENTERED AT DEPARTURE: 03/20/22 14:41 Medical Decision Making 77-year-old female, reports chronic right knee pain, had an injection last , attempting to delay total knee replacement presents after walking downstairs, her knee buckled and gave out, causing her to fall to the side, denies any other injury. She reports pain from her knee up to her hip but there is no obvious deformity or hip injury. Denies any other injuries, numbness, tingling, weakness. Patient is unable to bear weight. Plan is to obtain x-ray of her right hip, pelvis, right knee and provide analgesia. She requests only 1/2 tablet of Percocet. She later requested the other half as she states that she was very sensitive to medication but the first dose did not help. X-ray is unremarkable for any obvious bony abnormality. Dr. Albert called the ER after reviewing the x-rays, recommends knee immobilizer, walker, and he will be happy to follow patient in his office next week. Discussed x-ray findings with patient and family, knee brace applied, she was able to ambulate slowly but steadily using a walker. Short-term analgesia prescription provided. Standard discharge and return precautions were provided. Patient understands, is agreeable to this plan, and has no additional questions or concerns upon discharge. This documentation was generated using [employer] system, please disregard any oddities of phrase or misspellings. Medical Records Medical records reviewed: Yes I reviewed the patient's medical records. Imaging Data Radiologic Study: Attestation: I personally reviewed and interpreted this imaging study as follows: Imaging: X-Ray Radiologist's impression: PROCEDURE INFORMATION: Exam: XR Right Knee Exam date and time: 03/20/2022 1:21 PM Age: 77 years old Clinical indication: Injury or trauma; Fall; Blunt trauma; Knee; Right TECHNIQUE: Imaging protocol: XR Right knee. Views: 4 or more views. COMPARISON: CR XR KNEE RT 3V AP,LAT,CRYSTAL 03/17/2022 11:58 AM FINDINGS: Bones/joints: Medial compartment narrowing. Narrowed medial patellofemoral joint. Small tricompartment marginal osteophytes. Soft tissues: Minimal fluid or synovitis IMPRESSION: No acute findings. Degenerative arthritis right knee Radiologic Study #2: Attestation: I personally reviewed and interpreted this imaging study as follows: Imaging: X-Ray Radiologist's impression: PROCEDURE INFORMATION: Exam: XR Right Hip Exam date and time: 03/20/2022 1:17 PM Age: 77 years old Clinical indication: Injury or trauma; Fall; Blunt trauma (contusions or hematomas); Right; Hip TECHNIQUE: Imaging protocol: XR Right hip. Views: 2 or 3 views hip with pelvis when performed. COMPARISON: CR XR LUMBAR SPINE FLEX/EXT ONLY 12/23/2021 10:37 AM FINDINGS: Bones/joints: Posterior waylon and pedicle screw fusion of L4 through S1. Lower lumbar curve, convex to the left. The bones are demineralized. Soft tissues: Unremarkable. Intraperitoneal space: Surgical clips in the lower abdomen and pelvis. IMPRESSION: No acute findings Thank you for allowing us to participate in the care of your patient. HPI General Mode of arrival: wheelchair. Date/Time Provider Initiated Documentation: 03/20/22 12:23. Limitations to Documentation: no limitations. Information obtained by: patient and family. History of Present Illness 77 year old F presents to the emergency department with the chief complaint of R knee injury, described as severe, with intensity rated at 8. Quality is described as stabbing and aching, and is localized to the right and lower extremity. Patient reports no radiation. Patient started experiencing this hour(s) (1) and it has been constant. Immobilization improves symptom(s), Movement worsens symptoms . Patient notes no other symptoms.. Patient did receive the following treatments prior to arrival, none Related Data Home Medications Medication Instructions Recorded Confirmed Fish Oil Softgel 1 ea PO DAILY 07/24/13 03/17/22 muqpaqzcxsg-hfginyspa-yrd C-Mn 750 1 ea PO DAILY 07/24/13 03/17/22 mg-600 mg-55 mg-5 mg tablet ibuprofen 200 mg capsule 2 tab PO TID PRN 07/24/13 03/17/22 L.acidoph, paracasei,B. lactis 10 1 cap PO DAILY 10/12/17 03/17/22 billion cell capsule acetaminophen 500 mg tablet (Mapap 1,000 mg PO BID PRN 04/15/18 03/17/22 Extra Strength) psyllium husk 3.4 gram/5.4 gram 1 tbs PO DAILY 12/17/18 03/17/22 oral powder (Metamucil) vit cap PO 03/17/22 03/17/22 C,E,zinc,Kn-guouh-1-lutein-zeaxanthin 250 mg-2.5 mg-0.5 mg capsule hydrocodone 5 mg-acetaminophen 325 1 tab PO Q8H PRN #8 tabs 03/20/22 mg tablet Previous Rx's Medication Instructions Recorded hydrocodone 5 mg-acetaminophen 325 1 tab PO Q8H PRN #8 tabs 03/20/22 mg tablet Allergies Allergy/AdvReac Type Severity Reaction Status Date / Time azithromycin Allergy Intermediate Hives Verified 03/20/22 12:18 [email or web address] [From Myrbetriq] Allergy Verified 03/20/22 12:18 pneumococcal vaccine AdvReac Unknown advised Verified 03/20/22 12:18 not to do booster many years ago General Stated Complaint: Orthopedic CRYS: 3 Review of Systems Constitutional Constitutional: Denies fever(s) and Denies headache(s) ENT Ears, Nose, Mouth, and Throat: Denies headache(s) and Denies neck pain Musculoskeletal Musculoskeletal: Denies deformity, Reports arthralgias, Denies neck pain, Denies numbness, Reports stiffness and Denies tingling Integumentary/Breasts Skin/Breast: Denies rash Neurologic Neurologic: Denies headache(s), Denies numbness and Denies tingling PFSH All Active Problems Injury of knee, right (Acute) Stress at home (Acute) Advance care planning (Acute) Skin lesion (Acute) Urinary incontinence (Acute) Myasthenia gravis (Chronic) Ptosis of eyelid (Acute) Left foot drop (Acute) Radiculopathy (Acute) Lumbar stenosis (Acute) Trochanteric bursitis, left hip (Acute) >6 injections Last injection: 05/18/2020 Primary osteoarthritis of both knees (Chronic) Treated for many years with bilateral Synvisc injections. BILAT SYNVISC 03/17/22 Primary osteoarthritis of left knee (Acute) Synvisc injection: 12/13/2019; 06/11/2019 Urinary incontinence (Acute) Diverticula of colon (Acute) Stress due to spouse with dementia (Chronic 10/30/17) Polyp of colon (Chronic) Osteopenia (Chronic) Lichen planus (Chronic) oral Lactose intolerance (Chronic) Family hx-breast malignancy (Chronic) Chronic idiopathic constipation (Chronic 12/07/16) Anxiety (Chronic) Medical History Allergic rhinitis 02/12/14 Cataract Chest pain, unspecified 10/13/17 Cranial nerve III palsy, partial Degenerative arthritis of knee, bilateral (03/23/15) Disc displacement Surgery 2007 Disorder of sacrum Diverticulosis of colon without diverticulitis colitis 2014 History of tobacco use Kidney stone 02/21-basket extraction Myasthenia gravis Neuropathy Primary fibromyalgia syndrome Vertigo Surgical History Appendectomy Bilateral salpingectomy with oophorectomy Endometrial Biopsy (~1992) Extraction of cataract 10/07/14-LEFT;10/21/14-RIGHT; 12/05/14-RIGHT H/O bilateral salpingo-oophorectomy H/O knee surgery left History of discectomy History of gynecologic surgery 10/23/92 Endometrial biopsy Hx of appendectomy Hx of lumbosacral spine surgery knee surgery left lumbar spine surgery S/P cataract extraction 10/07/14 Dr. Montoya; left eye 10/21/14, right eye 12/05/14 S/P tonsillectomy and adenoidectomy S/P trigger finger release x4 S/P vaginal hysterectomy Tonsillectomy and adenoidectomy Trigger Finger release x 4 Vaginal hysterectomy Family History Mother , 96 Essential hypertension Father , 74 COPD (chronic obstructive pulmonary disease) Sister No problems noted. Sister No problems noted. Brother Substance abuse Maternal Grandfather Cancer Paternal Grandfather No problems noted. Maternal Grandmother Heart disease Paternal Grandmother Diabetes Son Depression Daughter No problems noted. Social History Smoking/Tobacco Use Status: Former Tobacco Use Tobacco: How many years used: 20 Second Hand Exposure: Yes Smoking risk assessment performed?: Yes Alcohol Intake: never Drug use: Never Substance use type: does not use Caregiver/Support person: No Household members: spouse Housing: house Communication Needs: None Do you need help understanding health information?: Rarely Pets and animals: No Sexually active: No Do you think of yourself as: straight/heterosexual Current gender identity: female What is your relationship status?: How often do you talk on the phone with friends or family?: three or more times per week How often do you get together with friends or relatives?: three or more times per week How often do you attend tenriism or scientologist services?: 1-3 times per year Do you belong to any clubs or organized social groups?: no Panel score (0-1 are the most socially isolated patients): 2 What type of physical activity do you participate in: weight lifting Duration: 30-45 minutes/day Frequency: 5-6 times per week Alpa/Confucianism: Yazidism Special alpa needs: No Seatbelt use: always Drive intox or ride w/intox log truck driver: No Do you feel safe at home: Yes Do you feel safe in your relationship?: Yes Exam Const General: cooperative, healthy appearing, comfortable and no acute distress Orientation: alert and awake [facility] Head: normal to inspection, normocephalic and atraumatic Eyes General: appearance normal, both eyes and all related structures Conjunctivae: conjunctivae normal Neck Neck: normal visual inspection, full ROM, trachea midline and supple Resp Effort & Inspection: normal respiratory effort and able to speak in complete sentences Cardio Rate: regular rate Rhythm: regular rhythm Back/Spine/Pelvis Back: No back tenderness Skin General skin exam: no rashes or lesions noted Neuro General: patient alert, patient awake, moves all extremities and no focal motor deficits Cognition: normal cognition Speech: speech normal Motor: muscle tone normal throughout Sensory Exam: no sensory deficits noted Extrem General: capillary refill normal Other: Right hip with diffuse mild anterior and lateral discomfort. There is no swelling, erythema, ecchymosis. There is no shortening or rotation of the leg. Right knee full extension, limited flexion secondary to discomfort. There is diffuse discomfort more so on the anterior aspect with mild swelling. There is no erythema, warmth, or bony point tenderness. There is no deformity. Skin is intact. There is increased discomfort with both varus and valgus stress but negative anterior draw sign. Normal capillary refill and pedal pulse. Calf, ankle, foot unremarkable. Psych Appearance: grossly normal Mental Status: mental status grossly normal Course Vital Signs Vital signs: Vital Signs Temperature 37.2 C 03/20/22 12:14 Pulse 78 03/20/22 12:14 Respiratory Rate 16 03/20/22 12:14 Blood Pressure 142/74 H 03/20/22 12:14 Pulse Oximetry 96 03/20/22 12:14 Temperature 37.2 C 03/20/22 12:14 Pulse 78 03/20/22 12:14 Respiratory Rate 16 03/20/22 12:14 Respiratory Effort 03/20/22 12:19 Blood Pressure 142/74 H 03/20/22 12:14 Pulse Oximetry 96 03/20/22 12:14 Pain Level 7 03/20/22 12:19
[2022-03-20 14:40] VITALS: BP 130/68; PULSE 65; RESP 16; O2SAT 99
== END 2022-03-20 14:41 | disposition home or self-care (01) ==
PROVIDERS: Emergency Provider Physician Assistant; PCP Family Medicine
DX: S89.81XA Other specified injuries of right lower leg, initial encounter (principal); M25.551 Pain in right hip; W18.39XA Other fall on same level, initial encounter; Z96.651 Presence of right artificial knee joint
CPT/HCPCS: 99284; 73502; 73564; 99283

== ENCOUNTER → 2022-03-28 10:53 | Outpatient (BNVA) | payer MEDICARE, BC, SELFPAY | PROVIDERS: PCP Family Medicine; Referring Provider Family Medicine; Visit Provider Student in an Organized Health Care Education/Training Program | DX: X58.XXXA Exposure to other specified factors, initial encounter (principal); M17.0 Bilateral primary osteoarthritis of knee; S89.91XA Unspecified injury of right lower leg, initial encounter | CPT/HCPCS: 20610; J1040 ==

== ENCOUNTER 2022-04-07 03:57 | Outpatient (CLI) | payer MEDICARE, BC, SELFPAY ==
[2022-04-07 12:39] LABS: HCT 39.9 % (36.0-46.0); HGB 12.9 g/dL (11.2-15.7); MCH 29.2 pg (27.0-33.0); MCHC 32.3 % (32.0-36.0); MCV 90 fL (80-95); MPV 11.1 fL (8.0-11.0); Platelet Count 247 10^3/uL (130-400); RBC 4.42 10^6/uL (3.93-5.22); RDW 14.5 % (11.7-14.6); RDW-SD 48.4 fL; WBC 5.22 10^3/uL (4.4-10.8)
[2022-04-07 13:07] LABS: TSH (W/Ref FT4) 1.94 uIU/mL (0.36-3.74)
== END 2022-04-07 03:58 | disposition home or self-care (01) ==
LOC: LOS 03:57
PROVIDERS: PCP Family Medicine; Visit Provider Family Medicine
DX: K59.04 Chronic idiopathic constipation (principal); R00.2 Palpitations; F41.9 Anxiety disorder, unspecified
CPT/HCPCS: 36415; 85027; 84443

== ENCOUNTER 2022-04-11 03:02 | Outpatient (RCR) | payer MEDICARE, BC, SELFPAY ==
--- NOTE | 2022-04-11 10:45 | HOLTER_ITS ---
APPROVED REPORT Conclusion This is a 48-hour Holter monitor ordered for palpitations Predominant rhythm was sinus with an average heart rate of 75. Minimum was 56, maximum 119 There were rare isolated atrial and ventricular ectopic beats There were two self-limited atrial runs, the longest of which was 4 beats in duration Patient symptoms were reported but these did not reliably correspond to any dysrhythmia
== END 2022-04-21 23:59 | disposition home or self-care (01) ==
LOC: RT 03:02
PROVIDERS: PCP Family Medicine; Visit Provider Family Medicine
DX: R00.2 Palpitations (principal); I49.1 Atrial premature depolarization
CPT/HCPCS: 93227; 93225; 93226

== ENCOUNTER → 2022-05-23 13:37 | Outpatient (BNVA) | payer MEDICARE, BC, SELFPAY | PROVIDERS: PCP Family Medicine; Referring Provider Family Medicine; Visit Provider Student in an Organized Health Care Education/Training Program | DX: M17.11 Unilateral primary osteoarthritis, right knee (principal); M21.372 Foot drop, left foot; M17.12 Unilateral primary osteoarthritis, left knee | CPT/HCPCS: 20610; J1040 ==

== ENCOUNTER → 2022-07-14 10:49 | Outpatient (BNVA) | payer MEDICARE, BC, SELFPAY | PROVIDERS: PCP Family Medicine; Referring Provider Family Medicine; Visit Provider Psychiatry & Neurology Neurology | DX: G70.00 Myasthenia gravis without (acute) exacerbation (principal); M48.061 Spinal stenosis, lumbar region without neurogenic claudication; G89.29 Other chronic pain; M21.372 Foot drop, left foot; R32 Unspecified urinary incontinence | CPT/HCPCS: 99214 ==

== ENCOUNTER 2022-11-04 00:11 | Outpatient (CLI) | payer MEDICARE, BC, SELFPAY ==
--- NOTE | 2022-11-04 07:45 | DI.DEXA_ITS ---
Exam(s) XR DEXA BONE DENSITY W/WO GERALD EXAM: XR DEXA BONE DENSITY W/WO GERALD CLINICAL HISTORY: osteoporosis,m81.0 TECHNIQUE: COMPARISON: Comparison examination is 10/07/2009. FINDINGS: Lateral Spine Image: Unremarkable. No compression deformities identified. Postsurgical changes are s een in the lower lumbar spine. Left hip: Total T-Score: -2.7. This compares to -1.1 on the prior examination. Total Z-Score: -0.9 T- and Z-scores: Findings are consistent with osteoporosis. Lumbar Spine: Total T-Score: -1.4. This compares to -1.1 on the prior examination. Total Z-Score: 1.0 T- and Z-scores: Findings are consistent with osteopenia. IMPRESSION: Osteoporosis in the left hip.
== END 2022-11-04 00:31 ==
LOC: DI 00:11
PROVIDERS: PCP Family Medicine; Visit Provider Family Medicine
DX: M81.0 Age-related osteoporosis without current pathological fracture (principal); Z13.820 Encounter for screening for osteoporosis; M85.88 Other specified disorders of bone density and structure, other site
CPT/HCPCS: 77080

== ENCOUNTER 2023-03-30 16:36 | Outpatient (REF) | payer MEDICARE, BC, SELFPAY ==
[2023-03-30 20:28] LABS: Bilirubin Negative (Negative); Blood Trace-intact (Negative); Clarity Cloudy (Clear); Glucose Negative (Negative); Ketones Negative (Negative); Leukocyte Esterase Moderate (Negative); Nitrite Positive (Negative); Specific Gravity 1.015 (1.005-1.025); Urobilinogen 0.2 mg/dL (Up to 0.2); pH 5.5 (5-8)
[2023-03-30 20:34] LABS: Bacteria Many HPF (Negative); C & S Indicated? Yes; Casts Negative LPF (Negative); Crystals Negative HPF (Negative); Epithelial Cells Few HPF (Negative); Mucus Negative (Negative); RBC 0-2 HPF (0-2); WBC >50 HPF (0-5)
== END 2023-03-30 16:37 | disposition home or self-care (01) ==
LOC: NCHCN 16:36
PROVIDERS: PCP Family Medicine; Visit Provider Family Medicine
DX: R30.0 Dysuria (principal)
CPT/HCPCS: 87077; 81003; 81015; 87086; 87186

== ENCOUNTER 2023-05-16 21:05 | Outpatient (REF) | payer MEDICARE, BC, SELFPAY ==
[2023-05-16 22:19] LABS: Bilirubin Negative (Negative); Blood Trace-lysed (Negative); Clarity Cloudy (Clear); Glucose Negative (Negative); Ketones Trace mg/dL (Negative); Leukocyte Esterase Moderate (Negative); Nitrite Negative (Negative); Specific Gravity 1.025 (1.005-1.025); Urobilinogen 0.2 mg/dL (Up to 0.2); pH 5.5 (5-8)
[2023-05-16 22:43] LABS: WBC >50 HPF (0-5)
[2023-05-16 22:46] LABS: C & S Indicated? Yes
== END 2023-05-16 21:06 | disposition home or self-care (01) ==
LOC: LBN 21:05
PROVIDERS: PCP Family Medicine; Visit Provider Family Medicine
DX: Z87.440 Personal history of urinary (tract) infections (principal)
CPT/HCPCS: 81003; 81015; 87086

== ENCOUNTER → 2023-07-24 11:03 | Outpatient (BNVA) | payer MEDICARE, BC, SELFPAY | PROVIDERS: PCP Family Medicine; Referring Provider Family Medicine; Visit Provider Student in an Organized Health Care Education/Training Program | DX: M17.11 Unilateral primary osteoarthritis, right knee (principal); M17.12 Unilateral primary osteoarthritis, left knee | CPT/HCPCS: 20610; J1040 ==

== ENCOUNTER 2023-08-21 18:02 | Outpatient (REF) | payer MEDICARE, BC, SELFPAY ==
[2023-08-21 21:20] LABS: Bilirubin Negative (Negative); Blood Trace-intact (Negative); Clarity Cloudy (Clear); Glucose Negative (Negative); Ketones Trace mg/dL (Negative); Leukocyte Esterase Moderate (Negative); Nitrite Positive (Negative); Specific Gravity 1.025 (1.005-1.025); Urobilinogen 0.2 mg/dL (Up to 0.2)
[2023-08-21 21:35] LABS: Bacteria Many HPF (Negative); C & S Indicated? Yes; Casts Negative LPF (Negative); Crystals Few Calcium Oxalate HPF (Negative); Epithelial Cells Few HPF (Negative); Mucus Negative (Negative); RBC 0-2 HPF (0-2); WBC >50 HPF (0-5)
== END 2023-08-21 18:03 | disposition home or self-care (01) ==
LOC: LBN 18:02
PROVIDERS: PCP Family Medicine; Visit Provider Family Medicine
DX: R10.2 Pelvic and perineal pain (principal)
CPT/HCPCS: 87077; 81003; 81015; 87086; 87186

== ENCOUNTER 2023-09-12 16:18 | Outpatient (REF) | payer MEDICARE, BC, SELFPAY ==
[2023-09-12 20:10] LABS: Bilirubin Negative (Negative); Blood Trace-intact (Negative); Clarity Cloudy (Clear); Glucose Negative (Negative); Ketones Negative (Negative); Leukocyte Esterase Moderate (Negative); Nitrite Positive (Negative); Specific Gravity 1.025 (1.005-1.025); Urobilinogen 0.2 mg/dL (Up to 0.2)
[2023-09-12 20:35] LABS: Bacteria Many HPF (Negative); C & S Indicated? Yes; Crystals Rare Calcium Oxalate HPF (Negative); Epithelial Cells Rare HPF (Negative); Mucus Negative (Negative); Other Cells Rare Transitional (Negative); RBC 0-2 HPF (0-2); WBC >50 HPF (0-5)
== END 2023-09-12 16:19 | disposition home or self-care (01) ==
LOC: LBN 16:18
PROVIDERS: PCP Family Medicine; Visit Provider Family Medicine
DX: R30.0 Dysuria (principal)
CPT/HCPCS: 87077; 81003; 81015; 87086; 87186

== ENCOUNTER 2023-10-10 19:00 | Outpatient (REF) | payer MEDICARE, BC, SELFPAY ==
[2023-10-10 13:14] LABS: Bilirubin Negative (Negative); Blood Trace-lysed (Negative); Clarity Cloudy (Clear); Glucose Negative (Negative); Ketones Negative (Negative); Leukocyte Esterase Large (Negative); Nitrite Positive (Negative); Specific Gravity 1.025 (1.005-1.025); Urobilinogen 0.2 mg/dL (Up to 0.2); pH 5.5 (5-8)
[2023-10-10 13:24] LABS: C & S Indicated? Yes; WBC >50 HPF (0-5)
== END 2023-10-10 19:01 | disposition home or self-care (01) ==
LOC: LBN 19:00
PROVIDERS: PCP Family Medicine; Visit Provider Family Medicine
DX: R35.0 Frequency of micturition (principal)
CPT/HCPCS: 87077; 81003; 81015; 87086; 87186

== ENCOUNTER 2023-11-16 11:08 | Outpatient (REF) | payer MEDICARE, BC, SELFPAY ==
[2023-11-16 12:22] LABS: Bilirubin Negative (Negative); Blood Trace-lysed (Negative); Clarity Cloudy (Clear); Glucose Negative (Negative); Ketones Negative (Negative); Leukocyte Esterase Large (Negative); Nitrite Negative (Negative); Urobilinogen 0.2 mg/dL (Up to 0.2)
[2023-11-16 12:28] LABS: Bacteria Moderate HPF (Negative); C & S Indicated? Yes; Casts 0-2 Hyaline LPF (Negative); Crystals Negative HPF (Negative); Epithelial Cells Rare HPF (Negative); Mucus Negative (Negative); RBC 0-2 HPF (0-2); WBC >50 HPF (0-5)
== END 2023-11-16 11:09 | disposition home or self-care (01) ==
LOC: LBN 11:08
PROVIDERS: PCP Family Medicine; Visit Provider Family Medicine
DX: R35.0 Frequency of micturition (principal); R82.998 Other abnormal findings in urine
CPT/HCPCS: 87077; 81003; 81015; 87086; 87186

== ENCOUNTER 2023-11-28 15:14 | Outpatient (REF) | payer MEDICARE, BC, SELFPAY ==
[2023-11-28 12:40] LABS: Bilirubin Negative (Negative); Blood Negative (Negative); Clarity Clear (Clear); Glucose Negative (Negative); Ketones Negative (Negative); Leukocyte Esterase Small (Negative); Nitrite Negative (Negative); Specific Gravity 1.025 (1.005-1.025); Urobilinogen 0.2 mg/dL (Up to 0.2)
[2023-11-28 12:55] LABS: Bacteria Moderate HPF (Negative); C & S Indicated? No/Sq. Contamination; Casts Negative LPF (Negative); Crystals Negative HPF (Negative); Epithelial Cells Many HPF (Negative); Mucus Negative (Negative); RBC 0-2 HPF (0-2)
== END 2023-11-28 15:15 | disposition home or self-care (01) ==
LOC: LBN 15:14
PROVIDERS: PCP Family Medicine; Visit Provider Family Medicine
DX: N39.0 Urinary tract infection, site not specified (principal)
CPT/HCPCS: 81003; 81015

== ENCOUNTER 2023-12-04 21:25 | Outpatient (REF) | payer MEDICARE, BC, SELFPAY ==
[2023-12-04 22:10] LABS: Bilirubin Negative (Negative); Blood Trace-intact (Negative); Clarity Cloudy (Clear); Glucose Negative (Negative); Ketones Negative (Negative); Leukocyte Esterase Small (Negative); Nitrite Negative (Negative); Specific Gravity 1.025 (1.005-1.025); Urobilinogen 0.2 mg/dL (Up to 0.2)
[2023-12-04 22:35] LABS: Bacteria Packed HPF (Negative); C & S Indicated? Yes; WBC >50 HPF (0-5)
== END 2023-12-04 21:26 | disposition home or self-care (01) ==
LOC: LBN 21:25
PROVIDERS: PCP Family Medicine; Visit Provider Family Medicine
DX: N39.0 Urinary tract infection, site not specified (principal)
CPT/HCPCS: 81003; 81015; 87086

== ENCOUNTER 2023-12-20 20:59 | Outpatient (REF) | payer MEDICARE, BC, SELFPAY ==
[2023-12-20 21:31] LABS: Bilirubin Negative (Negative); Blood Trace-intact (Negative); Clarity Turbid (Clear); Glucose Negative (Negative); Ketones Trace mg/dL (Negative); Leukocyte Esterase Moderate (Negative); Nitrite Negative (Negative); Specific Gravity 1.025 (1.005-1.025); Urobilinogen 0.2 mg/dL (Up to 0.2); pH 5.5 (5-8)
[2023-12-20 21:37] LABS: Bacteria Many HPF (Negative); C & S Indicated? Yes; WBC >50 HPF (0-5)
== END 2023-12-20 21:00 | disposition home or self-care (01) ==
LOC: LBN 20:59
PROVIDERS: PCP Family Medicine; Visit Provider Family Medicine
DX: R30.0 Dysuria (principal)
CPT/HCPCS: 87077; 81003; 81015; 87086; 87186

== ENCOUNTER 2024-01-20 09:42 | Emergency (ER) | payer MEDICARE, BC, SELFPAY ==
[2024-01-20 09:45] VITALS: BP 150/74; PULSE 74; RESP 16; TEMP 36.5; O2SAT 94
[2024-01-20 10:04] VITALS: BP 150/74; PULSE 74; RESP 16; TEMP 36.5; O2SAT 94
[2024-01-20 10:09] LABS: Bilirubin Negative (Negative); Blood Small (Negative); Clarity Sl Cloudy (Clear); Glucose Negative (Negative); Ketones Negative (Negative); Leukocyte Esterase Large (Negative); Nitrite Positive (Negative); Urobilinogen 0.2 mg/dL (Up to 0.2)
[2024-01-20 10:22] LABS: WBC >50 HPF (0-5)
[2024-01-20 10:23] LABS: C & S Indicated? Yes
--- NOTE | 2024-01-20 10:23 | W.ED.GENAD ---
Discharge Plan Disposition Patient Disposition: Home Discharge Details Clinical Impression: Acute UTI Primary Care Provider: Sallie Babcock ED Provider: Darell Beach Home Meds and New Rx's Prescriptions: New cefuroxime axetil 500 mg tablet 500 mg PO BID 10 Days Qty: 20 0RF Continued vit C,E,Zn,Fm--abo-zeax 250-2.5-0.5 mg capsule PO Metamucil 3.4 gram/5.4 gram powder 1 tbs PO DAILY ibuprofen 200 MG capsule 2 tab PO TID PRN zkaddcigfhz-jaekpmyhr-dgi C-Mn 1 EACH tablet 1 ea PO DAILY FISH OIL SOFTGEL 1 EACH capsule 1 ea PO DAILY estradiol [Yuvafem] 10 mcg tablet 10 mcg vaginal .COMPLEX Qty: 26 4RF Rx Instructions: 10 mcg vaginally daily for 14 days, then twice weekly; L.acidoph, paracasei,B. lactis 1 EACH capsule 1 cap PO DAILY acetaminophen [Mapap Extra Strength] 500 MG tablet 1,000 mg PO BID PRN Discharge Instructions Instructions: Urinary Tract Infection in Women (ED) Additional Instructions: Please take antibiotics as prescribed and follow-up with primary care provider if not improving while you are waiting for your urology appointment. Return the emergency department for any new or significant worsening of symptoms. Referrals: Sallie Babcock MD, [place] [Primary Care Provider] - 5 days (If not improving) HPI General Mode of arrival: ambulatory. Date/Time Provider Initiated Documentation: 01/20/24 10:02. Limitations to Documentation: no limitations. Information obtained by: patient and RN notes reviewed. History of Present Illness 78 year old F presents to the emergency department with the chief complaint of burning frequency and urgency of urination, described as moderate and similar to prior episodes, and is localized to the pelvis. Patient started experiencing this year(s) (1) and it has been intermittent. No relieving factors improve symptom(s), No exacerbating factors reported . Patient notes no other symptoms.. Related Data Home Medications Medication Instructions Recorded Confirmed Fish Oil Softgel 1 ea PO DAILY 07/24/13 01/20/24 mrtujozeykf-pmbygmork-pno C-Mn 750 1 ea PO DAILY 07/24/13 01/20/24 mg-600 mg-55 mg-5 mg tablet ibuprofen 200 mg capsule 2 tab PO TID PRN 07/24/13 01/20/24 L.acidoph, paracasei,B. lactis 10 1 cap PO DAILY 10/12/17 01/20/24 billion cell capsule acetaminophen 500 mg tablet (Mapap 1,000 mg PO BID PRN 04/15/18 01/20/24 Extra Strength) psyllium husk 3.4 gram/5.4 gram 1 tbs PO DAILY 12/17/18 01/20/24 oral powder (Metamucil) vit cap PO 03/17/22 10/10/23 C,E,zinc,Xm-btkln-5-lutein-zeaxanthin 250 mg-2.5 mg-0.5 mg capsule estradiol 10 mcg vaginal tablet 10 mcg vaginal .COMPLEX #26 tabs 05/24/23 01/20/24 (Yuvafem) cefuroxime axetil 500 mg tablet 500 mg PO BID 10 days #20 tabs 01/20/24 Previous Rx's Medication Instructions Recorded estradiol 10 mcg vaginal tablet 10 mcg vaginal .COMPLEX #26 tabs 05/24/23 (Yuvafem) cefuroxime axetil 500 mg tablet 500 mg PO BID 10 days #20 tabs 01/20/24 Allergies Allergy/AdvReac Type Severity Reaction Status Date / Time azithromycin Allergy Intermediate Hives Verified 01/20/24 10:02 [email or web address] [From Myrbetriq] Allergy Other (See Verified 01/20/24 10:02 Comment) pneumococcal vaccine AdvReac Unknown advised Verified 01/20/24 10:02 not to do booster many years ago General Stated Complaint: Urinary CRYS: 3 Review of Systems Constitutional Constitutional: Denies body ache(s), Denies chills, Denies fever(s), Denies malaise and Denies weakness Cardiovascular Cardiovascular: Denies chest pain Respiratory Respiratory: Reports system reviewed and no additional complaints, except as documented Gastrointestinal Gastrointestinal: Denies abdominal pain, Denies nausea and Denies vomiting Genitourinary Genitourinary: Reports as per HPI, Denies hematuria, Reports dysuria, Denies pelvic pain and Reports urinary urgency Neurologic Neurologic: Denies confusion and Denies weakness Psychiatric Psychiatric: Denies confusion Exam Const General: cooperative and no acute distress Orientation: alert, awake and oriented x3 Resp Effort & Inspection: normal respiratory effort and able to speak in complete sentences Auscultation: clear to auscultation bilaterally Cardio Rate: regular rate Rhythm: regular rhythm Heart Sounds: S1 normal and S2 normal GI Palpation: tender suprapubicly Back/Spine/Pelvis Back: no CVA tenderness Neuro General: patient alert, patient awake and patient oriented x3 Extrem General: capillary refill normal Course Vital Signs Vital signs: Vital Signs Temperature 36.5 C 01/20/24 09:45 Pulse 74 01/20/24 09:45 Respiratory Rate 16 01/20/24 09:45 Blood Pressure 150/74 H 01/20/24 09:45 Pulse Oximetry 94 01/20/24 09:45 Temperature 36.5 C 01/20/24 10:04 Temperature Source Temporal Artery Scan 01/20/24 10:04 Pulse 74 01/20/24 10:04 Respiratory Rate 16 01/20/24 10:04 Respiratory Effort Normal, Non-Labored 01/20/24 09:51 Blood Pressure 150/74 H 01/20/24 10:04 Blood Pressure Position Sitting 01/20/24 10:04 Pulse Oximetry 94 01/20/24 10:04 Oxygen Delivery Method Room Air 01/20/24 10:04 Oxygen Flow Rate 0 01/20/24 10:04 Lab/Test Results Lab/Test Results: Laboratory Tests Range/Units 01/20/24 09:15 Urine Color (Yellow) Yellow Urine Clarity (Clear) Sl Cloudy Urine pH (5-8) 6.0 Ur Specific [place] (1.005-1.025) 1.020 Urine Protein (Neg-Trace) mg/dL 30 H Urine Ketones (Negative) mg/dL Negative Urine Blood (Negative) Small H Urine Nitrite (Negative) Positive H Urine Bilirubin (Negative) Negative Urine Urobilinogen (Up to 0.2) mg/dL 0.2 Ur Leukocyte Esterase (Negative) Large H Urine Glucose (Negative) mg/dL Negative Medical Decision Making Patient presenting to the emergency department for chief complaint of urinary tract infection symptoms. She states that she is chronically had this over the past year and is pending a urology appointment at the end of January. She does state that earlier this month she had been placed on an antibiotic due to an abnormal culture which did help but symptoms of all returned. Patient denies any flank pain, fever chills, nausea vomiting. Physical exam shows no CVA tenderness, mild suprapubic tenderness otherwise benign exam. Urinalysis was performed and does show positive for nitrite leukocyte Estrace and significant WBC count. Review of previous cultures shows Aerococcus urinae and mix gram-positive. Patient was previously on amoxicillin and has taken Keflex Bactrim and Cipro in the past which she stated the only one that somewhat helped was amoxicillin. Given that she had just taken this will not represcribe this but will try Cefuroxime to see if this is better. Will give 10-day supply. Discussed return and follow-up precautions. After discussion of diagnosis and plan of care patient has no further needs, questions, or concerns and states clear understanding to return to the emergency department for any worsening symptoms. This documentation was generated using [employer] system, please disregard any oddities of phrase or misspellings. Lab Data Lab results reviewed: Yes I reviewed the patient's lab results. Quality:SDOH Health Related Social Needs: No Data to Display PFSH All Active Problems (Updated 01/20/24 @ 10:36 by Darell Beach NP) Acute UTI (Acute) Dysuria (Acute) Bladder irritability (Acute) Osteoarthritis of right knee (Acute) DEPO MEDROL 07/24/23 Rash and nonspecific skin eruption (Acute) Palpitation (Acute) Stress at home (Acute) Advance care planning (Acute) Skin lesion (Acute) Urinary incontinence (Acute) Myasthenia gravis (Chronic) Ptosis of eyelid (Acute) Left foot drop (Acute) Radiculopathy (Acute) Lumbar stenosis (Acute) Trochanteric bursitis, left hip (Acute) >6 injections Last injection: 05/18/2020 Primary osteoarthritis of both knees (Chronic) Treated for many years with bilateral Synvisc injections. BILAT SYNVISC 03/17/22 Primary osteoarthritis of left knee (Acute) Depo-Medrol injection: 05/23/22; 07/24/23 Synvisc injection: 12/13/2019; 06/11/2019 Diverticula of colon (Acute) Stress due to spouse with dementia (Chronic 10/30/17) Polyp of colon (Chronic) Osteopenia (Chronic) Lichen planus (Chronic) oral Lactose intolerance (Chronic) Family hx-breast malignancy (Chronic) Chronic idiopathic constipation (Chronic 12/07/16) Anxiety (Chronic) Medical History Urinary incontinence Cranial nerve III palsy, partial Myasthenia gravis Neuropathy Vertigo Disorder of sacrum Allergic rhinitis 02/12/14 Chest pain, unspecified 10/13/17 Primary fibromyalgia syndrome Kidney stone 02/21-basket extraction History of tobacco use Diverticulosis of colon without diverticulitis colitis 2013 Degenerative arthritis of knee, bilateral (03/23/15) Disc displacement Surgery 2007 Cataract Surgical History History of discectomy S/P tonsillectomy and adenoidectomy H/O bilateral salpingo-oophorectomy Hx of lumbosacral spine surgery S/P trigger finger release x4 S/P vaginal hysterectomy S/P cataract extraction 10/07/14 Dr. Montoya; left eye 10/21/14, right eye 12/05/14 Hx of appendectomy H/O knee surgery left History of gynecologic surgery 10/23/92 Endometrial biopsy lumbar spine surgery knee surgery left Trigger Finger release x 4 Tonsillectomy and adenoidectomy Vaginal hysterectomy Endometrial Biopsy (~1992) Extraction of cataract 10/07/14-LEFT;10/21/14-RIGHT; 12/05/14-RIGHT Bilateral salpingectomy with oophorectomy Appendectomy Family History Mother , 96 Essential hypertension Father , 74 COPD (chronic obstructive pulmonary disease) Sister No problems noted. Sister No problems noted. Brother Substance abuse Maternal Grandfather Cancer Paternal Grandfather No problems noted. Maternal Grandmother Heart disease Paternal Grandmother Diabetes Son Depression Daughter No problems noted. Social History Smoking/Tobacco Use Status: Former Tobacco Use tobacco type: cigarettes Quit Date: 10/23/02 Pack-years: 30 Tobacco: How many years used: 30 Second Hand Exposure: Yes Smoking risk assessment performed?: Yes Alcohol Intake: current Alcohol Intake frequency: holidays/special occasions only Alcohol type: hard liquor Drug use: Never Substance use type: does not use Adopted: No Caregiver/Support person: No Foster care: No Household members: spouse Housing: house Number of Children: 2 number of grandchildren: 4 Communication Needs: None Education Level: high school Do you need help understanding health information?: Rarely current occupation: Retired Pets and animals: No Sexually active: No Do you think of yourself as: straight/heterosexual Current gender identity: female What is your relationship status?: How often do you talk on the phone with friends or family?: three or more times per week How often do you get together with friends or relatives?: three or more times per week How often do you attend mormonism or sikh services?: 4 or more times per year Do you belong to any clubs or organized social groups?: yes Panel score (0-1 are the most socially isolated patients): 4 What type of physical activity do you participate in: walking and other Details: bck exercises, stacking wood, housewrk Duration: 15-30 minutes/day Frequency: 5-6 times per week Alpa/Mormonism: Pentecostalism Special alpa needs: No Seatbelt use: always Drive intox or ride w/intox inventory associate and driver: No Working smoke detector in home: Yes Carbon monox detector in home: Yes Firearms in home: No Do you feel safe at home: Yes Do you feel safe in your relationship?: Yes Victim of physical abuse: No Victim of emotional abuse: No Victim of sexual abuse: No PAWSS Have you Been Recently Intoxicated or Drunk Within the Last 30 days?: No Have you Ever Experienced Previous Episodes of Alcohol Withdrawal?: No Have you ever Experienced Withdrawal Seizures?: No Have you ever Experienced Delirium Tremens(DT)s?: No Have you ever undergone Alcohol Rehabilitation Treatment (i.e, inpt ot outpatient treatment programs)?: No Have you ever Experienced Blackouts?: No Have you ever Combined Alcohol with other Downers within the last 90 days?: No Have you ever Combined Alcohol with any other Substance of Abuse during the last 90 days?: No Positive Blood Alcohol level on Presentation? [PCS.BAL]: No Evidence of Increased Autonomic Activity (i.e. HR>120, tremor, sweating, agitation, nausea)?: No Result: 0
[2024-01-20] MEDS: Cefuroxime 500 MG TAB PO (11:05)
== END 2024-01-20 11:06 | disposition home or self-care (01) ==
PROVIDERS: Emergency Medicine; Emergency Provider Nurse Practitioner Family; PCP Family Medicine
DX: N39.0 Urinary tract infection, site not specified (principal); G70.00 Myasthenia gravis without (acute) exacerbation
CPT/HCPCS: 87077; 99283; 81003; 81015; 87086; 87186

== ENCOUNTER → 2024-01-24 04:04 | Outpatient (CLI) | payer MEDICARE, BC, SELFPAY ==
--- NOTE | 2024-01-24 06:45 | DI.US_ITS ---
Exam(s) US RENAL EXAM: US RENAL CLINICAL HISTORY: recurrent uti,? kidney or bladder stone,n39.0. TECHNIQUE: Neil scale, color and spectral Doppler were used. COMPARISON: US US ABDOMEN from 08/10/2018 FINDINGS: Renal size in cm: Right: 10.1. Left: 9.9. Echogenicity: Normal. Hydronephrosis: No. Cyst or mass: No. Nephrolithiasis: No. Other findings: None. Bladder:Normal. Ureteral jets: Right: Visualized and unremarkable. Left: Visualized and unremarkable. Prevoid vol:126 cc Postvoid vol:119 cc Renal color flow: Symmetric and within normal limits. IMPRESSION: 1. Unremarkable kidneys. No evidence of hydronephrosis. 2. Large postvoid urinary bladder volume. DATA REPOSITORY:
== END ==
PROVIDERS: PCP Family Medicine; Visit Provider Family Medicine
DX: N39.0 Urinary tract infection, site not specified (principal); R33.9 Retention of urine, unspecified
CPT/HCPCS: 76770

== ENCOUNTER 2024-02-02 18:30 | Outpatient (REF) | payer MEDICARE, BC, SELFPAY ==
[2024-02-02 21:31] LABS: Bilirubin Negative (Negative); Blood Trace-intact (Negative); Clarity Sl Cloudy (Clear); Glucose Negative (Negative); Ketones Negative (Negative); Leukocyte Esterase Moderate (Negative); Nitrite Positive (Negative); Specific Gravity 1.025 (1.005-1.025); Urobilinogen 0.2 mg/dL (Up to 0.2)
[2024-02-02 21:41] LABS: Bacteria Few HPF (Negative); C & S Indicated? Yes; Casts Negative LPF (Negative); Crystals Negative HPF (Negative); Epithelial Cells Few HPF (Negative); Mucus Negative (Negative); WBC >50 HPF (0-5)
== END 2024-02-02 18:31 | disposition home or self-care (01) ==
LOC: LBN 18:30
PROVIDERS: PCP Family Medicine; Visit Provider Family Medicine
DX: R31.9 Hematuria, unspecified (principal)
CPT/HCPCS: 87077; 81003; 81015; 87086; 87186

== ENCOUNTER → 2024-02-19 12:52 | Outpatient (BNVA) | payer MEDICARE, BC, SELFPAY | PROVIDERS: PCP Family Medicine; Referring Provider Family Medicine; Visit Provider Nurse Practitioner Gerontology | DX: N39.0 Urinary tract infection, site not specified (principal); M62.89 Other specified disorders of muscle | CPT/HCPCS: 51798; 99215 ==

== ENCOUNTER 2024-04-29 18:15 | Outpatient (REF) | payer MEDICARE, BC, SELFPAY ==
[2024-04-29 21:40] LABS: Bilirubin Negative (Negative); Blood Trace-intact (Negative); Clarity Cloudy (Clear); Glucose Negative (Negative); Ketones Negative (Negative); Leukocyte Esterase Moderate (Negative); Nitrite Negative (Negative); Specific Gravity 1.025 (1.005-1.025); Urobilinogen 0.2 mg/dL (Up to 0.2)
[2024-04-29 21:56] LABS: Bacteria Many HPF (Negative); C & S Indicated? Yes; WBC >50 HPF (0-5)
== END 2024-04-29 18:16 | disposition home or self-care (01) ==
LOC: LBN 18:15
PROVIDERS: PCP Family Medicine; Visit Provider Family Medicine
DX: R39.15 Urgency of urination (principal)
CPT/HCPCS: 87077; 81003; 81015; 87086; 87186

== ENCOUNTER → 2024-06-10 14:31 | Outpatient (BNVA) | payer MEDICARE, BC, SELFPAY | PROVIDERS: PCP Family Medicine; Referring Provider Family Medicine; Visit Provider Nurse Practitioner Gerontology | DX: N39.0 Urinary tract infection, site not specified (principal); M62.89 Other specified disorders of muscle | CPT/HCPCS: 51798; 81003; 99213 ==

== ENCOUNTER 2024-06-10 21:12 | Outpatient (REF) | payer MEDICARE, BC, SELFPAY | END 2024-06-10 21:13 | disposition home or self-care (01) | LOC: LBN 21:12 | PROVIDERS: PCP Family Medicine; Visit Provider Nurse Practitioner Gerontology | DX: N39.0 Urinary tract infection, site not specified (principal); R39.9 Unspecified symptoms and signs involving the genitourinary system; M62.89 Other specified disorders of muscle | CPT/HCPCS: 87086 ==

== ENCOUNTER 2024-08-02 16:18 | Outpatient (REF) | payer MEDICARE, BC, SELFPAY ==
[2024-08-02 13:30] LABS: Bilirubin Negative (Negative); Blood Negative (Negative); Clarity Sl Cloudy (Clear); Glucose Negative (Negative); Ketones Negative (Negative); Leukocyte Esterase Moderate (Negative); Nitrite Negative (Negative); Urobilinogen 0.2 mg/dL (Up to 0.2)
[2024-08-02 13:37] LABS: Bacteria Few HPF (Negative); Epithelial Cells Rare HPF (Negative); RBC 0-2 HPF (0-2)
[2024-08-02 13:38] LABS: C & S Indicated? Yes; Casts Negative LPF (Negative); Crystals Negative HPF (Negative); Mucus Trace (Negative)
== END 2024-08-02 16:19 | disposition home or self-care (01) ==
LOC: LBN 16:18
PROVIDERS: PCP Family Medicine; Visit Provider Family Medicine
DX: Z23 Encounter for immunization (principal)
CPT/HCPCS: 81003; 81015; 87086

== ENCOUNTER → 2024-08-08 11:41 | Outpatient (BNVA) | payer MEDICARE, BC, SELFPAY | PROVIDERS: PCP Family Medicine; Referring Provider Family Medicine; Visit Provider Nurse Practitioner Gerontology | DX: M62.89 Other specified disorders of muscle; R10.2 Pelvic and perineal pain; R39.9 Unspecified symptoms and signs involving the genitourinary system | CPT/HCPCS: 51798; 99213 ==

== ENCOUNTER 2024-08-27 15:36 | Outpatient (REF) | payer MEDICARE, BC, SELFPAY ==
[2024-08-27 16:49] LABS: Bilirubin Negative (Negative); Blood Trace-lysed (Negative); Clarity Sl Cloudy (Clear); Glucose Negative (Negative); Ketones Negative (Negative); Leukocyte Esterase Large (Negative); Nitrite Positive (Negative); Urobilinogen 0.2 mg/dL (Up to 0.2)
[2024-08-27 17:08] LABS: C & S Indicated? C&S Done As Ordered; WBC >50 HPF (0-5)
== END 2024-08-27 15:37 | disposition home or self-care (01) ==
LOC: LBN 15:36
PROVIDERS: PCP Family Medicine; Visit Provider Nurse Practitioner Gerontology
DX: N39.0 Urinary tract infection, site not specified (principal); R30.0 Dysuria
CPT/HCPCS: 87077; 81003; 81015; 87086; 87186

== ENCOUNTER 2024-09-12 16:08 | Outpatient (REF) | payer MEDICARE, BC, SELFPAY ==
[2024-09-12 12:30] LABS: Bilirubin Negative (Negative); Blood Negative (Negative); Clarity Clear (Clear); Glucose Negative (Negative); Ketones Negative (Negative); Leukocyte Esterase Small (Negative); Nitrite Negative (Negative); Urobilinogen 0.2 mg/dL (Up to 0.2)
[2024-09-12 12:36] LABS: Bacteria Few HPF (Negative); C & S Indicated? C&S Done As Ordered; Casts Negative LPF (Negative); Crystals Negative HPF (Negative); Epithelial Cells Few HPF (Negative); Mucus Negative (Negative); RBC Negative HPF (0-2); WBC 20-50 HPF (0-5)
== END 2024-09-12 16:09 | disposition home or self-care (01) ==
LOC: LBN 16:08
PROVIDERS: PCP Family Medicine; Visit Provider Nurse Practitioner Gerontology
DX: N39.0 Urinary tract infection, site not specified (principal); N32.89 Other specified disorders of bladder
CPT/HCPCS: 87077; 81003; 81015; 87086; 87186

== ENCOUNTER 2024-10-01 15:47 | Outpatient (CLI) | payer MEDICARE, BC, SELFPAY ==
[2024-10-01 16:49] LABS: Hemoglobin A1C 5.6 % (<5.7)
[2024-10-01 17:01] LABS: Absolute Basophil Count 0.05 10^3/uL (0.0-0.2); Absolute Eosinophil Count 0.29 10^3/uL (0.0-0.7); Absolute Lymphocyte Count 1.44 10^3/uL (1.2-3.4); Absolute Neutrophil Count 2.63 10^3/uL (1.2-6.7); HCT 39.1 % (36.0-46.0); HGB 12.3 g/dL (11.2-15.7); Lymphocytes % 29.9 %; MCH 29.1 pg (27.0-33.0); MCHC 31.5 % (32.0-36.0); MCV 92 fL (80-95); MPV 10.6 fL (8.0-11.0); Monocytes % 8.3 %; Neutrophils % 54.8 %; Platelet Count 183 10^3/uL (130-400); RBC 4.23 10^6/uL (3.93-5.22); RDW 13.2 % (11.7-14.6); RDW-SD 44.3 fL; WBC 4.81 10^3/uL (4.4-10.8)
[2024-10-01 17:47] LABS: ALT 22 U/L (14-59); AST 22 U/L (15-37); Albumin 3.6 g/dL (3.4-5.0); Alkaline Phosphatase 109 U/L (46-116); Anion Gap 6.1 mmol/L (3-11); BUN 14 mg/dL (7-18); Bilirubin, Total 0.38 mg/dL (0.2-1.0); CO2 27.9 mmol/L (21.0-32.0); CREATININE 1.1 mg/dL (0.55-1.02); Calcium 8.9 mg/dL (8.5-10.1); Chloride 107 mmol/L (98-107); Estimated GFR 51.75 (mL/min/1.73m2); Glucose 100 mg/dL (74-106); Potassium 4.6 mmol/L (3.5-5.1); Sodium 141 mmol/L (136-145); Total Protein 7.3 g/dL (6.4-8.2)
[2024-10-01 17:48] LABS: C-Reactive Protein < 0.50 mg/dL (<or=0.5)
[2024-10-01 18:25] LABS: Ferritin 61 ng/mL (8-252); Vitamin B12 603 pg/mL (193-986)
[2024-10-14 09:28] LABS: ACh Receptor(Muscle)Binding Ab 12.8 nmol/L (<=0.02)
[2024-10-15 08:32] LABS: Misc Referral (MAYO) See Comments
== END 2024-10-01 15:48 | disposition home or self-care (01) ==
LOC: LBO 15:48
PROVIDERS: PCP Family Medicine; Visit Provider Family Medicine
DX: R53.82 Chronic fatigue, unspecified (principal); G70.00 Myasthenia gravis without (acute) exacerbation; R25.1 Tremor, unspecified
CPT/HCPCS: 36415; 80053; 83519; 83520; 86255; 82607; 82728; 83036; 84443; 85025; 86140

== ENCOUNTER 2024-10-15 12:51 | Outpatient (REF) | payer MEDICARE, BC, SELFPAY ==
[2024-10-15 14:41] LABS: Bilirubin Negative (Negative); Blood Trace-intact (Negative); Clarity Sl Cloudy (Clear); Glucose Negative (Negative); Ketones Negative (Negative); Leukocyte Esterase Moderate (Negative); Nitrite Negative (Negative); Specific Gravity 1.025 (1.005-1.025); Urobilinogen 0.2 mg/dL (Up to 0.2)
[2024-10-15 15:05] LABS: Bacteria Many HPF (Negative); C & S Indicated? No/Sq. Contamination; Casts Negative LPF (Negative); Crystals Negative HPF (Negative); Epithelial Cells Moderate HPF (Negative); Mucus Negative (Negative); Other Cells Negative (Negative); WBC >50 HPF (0-5)
== END 2024-10-15 12:52 | disposition home or self-care (01) ==
LOC: LBN 12:51
PROVIDERS: PCP Family Medicine; Visit Provider Nurse Practitioner Gerontology
DX: N39.0 Urinary tract infection, site not specified (principal)
CPT/HCPCS: 87077; 81003; 81015; 87086; 87186

== ENCOUNTER 2024-10-22 01:27 | Outpatient (CLI) | payer MEDICARE, BC, SELFPAY ==
--- NOTE | 2024-10-22 06:37 | DI.CT_ITS ---
Exam(s) CT ABDOMEN PELVIS W EXAM: CT ABDOMEN PELVIS W CLINICAL HISTORY: severe cramping in abdomen and pelvis,diverticula of colon. TECHNIQUE: Imaging Protocol: Axial computed tomography images with coronal and sagittal reformatted images were created and reviewed CONTRAST MATERIAL: Intravenous: Omnipaque-350 75cc Oral: Yes. Oral contrast was also administered for bowel opacification. COMPARISON: No exams were available for comparison FINDINGS: VISUALIZED LUNG BASES: No nodules nor pleural effusions evident. ABDOMEN: There is no ascites. LIVER: There are no focal hepatic lesions evident. No dilated intrahepatic ducts. GALLBLADDER/BILIARY: No obvious gallbladder pathology. CBD is not dilated. PANCREAS: No evidence of pancreatic mass nor dilatation of the pancreatic duct. SPLEEN: Spleen is not enlarged. No obvious intrasplenic lesions. Splenic and portal veins are paten t. ADRENALS: There are no significant adrenal masses. KIDNEYS:No cysts evident. No solid renal masses. No calculi nor hydronephrosis.. ABDOMINAL AORTA: Abdominal aorta is not enlarged. LYMPH NODES:There is no retroperitoneal nor paraaortic adenopathy. ABDOMINAL WALL: No evidence of significant anterior abdominal wall nor inguinal hernia. GI: There is diverticulosis of the left side of the colon, this being quite extensive throughout the sigmoid. There is also evidence of subtle diverticulitis related to 1 of the diverticuli coming off the superior wall of the sigmoid. No evidence of perforation or abscess. PELVIS: GI: The appendix is surgically absent. LYMPH NODES: There is no intrapelvic nor inguinal adenopathy. REPRODUCTIVE: Uterus and ovaries are surgically absent. No adnexal masses. No free fluid. URINARY BLADDER: Mildly uniformly thickened urinary bladder wall. No obvious mass. No gas within th e urinary bladder lumen. OSSEOUS: No fractures and no significant osseous lesions. There is fusion hardware in the lower lumbar spine noted. IMPRESSION: 1. There is extensive diverticulosis of the sigmoid and subtle evidence of mild acute diverticulitis involving a diverticulum on the superior wall of the mid sigmoid. There is no evidence of perforatio n or abscess at this time. No free fluid evident. 2. Appendix appears to be surgically absent. RADIATION DOSE DELIVERED: 450.67mGy.cm Total DLP DATA REPOSITORY: All CT scans at this facility are submitted to the National Radiology Data Registry (NRDR) Dose Index Registry (DIR) with the [employer] (A[employer]). RADIATION OPTIMIZATION: All CT scans at this facility use at least one of these dose optimization te chniques: automated exposure control; mA and/or kV adjustment per patient size (includes targeted exa ms where dose is matched to clinical indication); or iterative reconstruction.
[2024-10-22] MEDS: Barium Sulfate 2% W/V-Creamy Vanilla Smoothie 450 ML BTL PO ×2 (07:34→07:35)
[2024-10-22] MEDS: Omnipaque 350 MG/ML 100 ML BTL 75 ML IJ (09:49)
[2024-10-22] MEDS: Normal Saline - Diluent 50 ML VIAL IJ (09:50)
== END 2024-10-22 01:47 ==
LOC: DI 01:27
PROVIDERS: PCP Family Medicine; Visit Provider Family Medicine
DX: K57.30 Diverticulosis of large intestine without perforation or abscess without bleeding (principal)
CPT/HCPCS: 74177; J3490

== ENCOUNTER 2024-11-05 21:33 | Outpatient (REF) | payer MEDICARE, BC, SELFPAY ==
--- NOTE | 2024-11-05 12:00 | PAPFT_PTH ---
PATIENT: Magali De Souza LOC: [facility] U#:[id number] AGE/SX: 79/F ROOM: RE11/05/[address]: Sallie Babcock MD, DC : 1945 BED: DIS: 11/05/2024 SPEC #: [id number] RECD: 11/06/24 12:52 STATUS: ISAURA RECarmela #: [id number] CHENG: 11/05/24 12:[address]: Sallie Babcock DEPT: [facility] Cytology RECD BY: Gauri Heck Tissues: 1 - CX/ENDOCX FOR PAP SMEARS Procedures: PAP THIN PREP/UVM Screening HPV DNA PROBE Comments: [id number] (HPV 16 & 18/45)
== END 2024-11-05 21:34 | disposition home or self-care (01) ==
LOC: LBN 21:33
PROVIDERS: PCP Family Medicine; Visit Provider Family Medicine
DX: Z12.4 Encounter for screening for malignant neoplasm of cervix (principal); R10.2 Pelvic and perineal pain; H61.23 Impacted cerumen, bilateral; Q15.9 Congenital malformation of eye, unspecified; N89.8 Other specified noninflammatory disorders of vagina
CPT/HCPCS: 88142; 87480; 87510; 87624; 87660

== ENCOUNTER 2024-11-27 00:06 | Outpatient (CLI) | payer MEDICARE, BC, SELFPAY ==
--- NOTE | 2024-11-27 06:30 | DI.MRI_ITS ---
Exam(s) MR BRAIN WO EXAM: MR BRAIN WO CLINICAL HISTORY: R eye tires quickly and doesn't focus,eye abnormalities,q15.9 TECHNIQUE: Multiplanar multisequence MRI of the brain was performed. COMPARISON: CR CHEST 2 VIEWS PA,LAT from 10/12/2017 MR MR ANGIO NECK WO from 11/10/2020 MR MR ANGIO BRAIN WO from 11/10/2020 FINDINGS: VENTRICLES AND EXTRA AXIAL SPACES: Normal in size and morphology for the patient's age. MIDLINE SHIFT: None. CEREBRAL PARENCHYMA: No focus of restricted diffusion to suggest acute infarct. No space-occupying le marie identified. Mild atrophy consistent with the patient's age. Multiple scattered foci of high sig nal in the white matter consistent with sequela of chronic microvascular disease. BRAINSTEM/CEREBELLUM: Normal. VISUALIZED PARANASAL SINUSES: Echo sole thickening of the maxillary and ethmoid sinuses. MASTOIDS:Clear. Vasculature: Normal flow void. PITUITARY GLAND: Unremarkable. ORBITS: Unremarkable. The extraocular muscles and optic nerves are symmetric. The globes appear sym metric. No intraorbital mass or abnormal signal in the intraconal fat. IMPRESSION: Scattered white matter foci likely representing sequela of chronic microvascular disease. No orbital abnormality is identified. DATA REPOSITORY:
== END 2024-11-27 00:26 ==
LOC: DI 00:07
PROVIDERS: PCP Family Medicine; Visit Provider Family Medicine
DX: Q15.9 Congenital malformation of eye, unspecified (principal); I25.85 Chronic coronary microvascular dysfunction
CPT/HCPCS: 70551

== ENCOUNTER → 2024-12-10 15:28 | Outpatient (BNVA) | payer MEDICARE, BC, SELFPAY | PROVIDERS: PCP Family Medicine; Visit Provider Nurse Practitioner Gerontology | DX: M62.89 Other specified disorders of muscle (principal); R30.0 Dysuria; N39.0 Urinary tract infection, site not specified | CPT/HCPCS: 81003; 99214 ==

== ENCOUNTER 2024-12-10 15:44 | Outpatient (REF) | payer MEDICARE, BC, SELFPAY | END 2024-12-10 15:45 | disposition home or self-care (01) | LOC: LBN 15:44 | PROVIDERS: PCP Family Medicine; Visit Provider Nurse Practitioner Gerontology | DX: N39.0 Urinary tract infection, site not specified (principal); M62.89 Other specified disorders of muscle; R30.0 Dysuria | CPT/HCPCS: 87077; 87086; 87186 ==

== ENCOUNTER → 2024-12-12 10:05 | Outpatient (BNVA) | payer MEDICARE, BC, SELFPAY | PROVIDERS: PCP Family Medicine; Referring Provider Family Medicine; Visit Provider Psychiatry & Neurology Neurology | DX: G70.00 Myasthenia gravis without (acute) exacerbation (principal) | CPT/HCPCS: 99214 ==

== ENCOUNTER 2025-01-14 12:26 | Outpatient (CLI) | payer MEDICARE, BC, SELFPAY ==
[2025-01-14 13:21] LABS: BUN 15 mg/dL (7-18); CREATININE 1.1 mg/dL (0.55-1.02); Estimated GFR 51.75 (mL/min/1.73m2)
[2025-01-14 13:24] LABS: Bilirubin Negative (Negative); Blood Large (Negative); Clarity Sl Cloudy (Clear); Glucose Negative (Negative); Ketones Negative (Negative); Leukocyte Esterase Moderate (Negative); Nitrite Negative (Negative); Urobilinogen 0.2 mg/dL (Up to 0.2); pH 5.5 (5-8)
[2025-01-14 13:36] LABS: Bacteria Moderate HPF (Negative); C & S Indicated? C&S Done As Ordered; Casts Negative LPF (Negative); Crystals Negative HPF (Negative); Epithelial Cells Rare HPF (Negative); Mucus Negative (Negative); RBC >50 HPF (0-2); WBC >50 HPF (0-5)
== END 2025-01-14 12:27 | disposition home or self-care (01) ==
LOC: LBO 12:27
PROVIDERS: PCP Family Medicine; Visit Provider Nurse Practitioner Gerontology
DX: M62.89 Other specified disorders of muscle (principal); R34 Anuria and oliguria
CPT/HCPCS: 36415; 84520; 81003; 81015; 82565; 87086

== ENCOUNTER 2025-01-17 00:51 | Outpatient (CLI) | payer MEDICARE, BC, SELFPAY ==
--- NOTE | 2025-01-17 07:30 | DI.US_ITS ---
Exam(s) US RENAL EXAM: US RENAL CLINICAL HISTORY: decreased urine output,pelvic floor dysfunction,? retention,m62.89. TECHNIQUE: Neil scale, color and spectral Doppler were used. COMPARISON: CT CT ABDOMEN PELVIS W from 10/22/2024 FINDINGS: Right kidney: 10.0cm Echogenicity: Normal Hydronephrosis: No Cyst or mass: No Nephrolithiasis: No Left kidney: 9.3cm Echogenicity: Normal Hydronephrosis: No Cyst or mass: No Nephrolithiasis: No Bladder:Mild funneling of the bladder neck. This could represent a small cystocele. Prevoid vol:78 cc Postvoid vol:56 cc IMPRESSION: Elevated postvoid residual. Mild funneling at the bladder neck could indicate small cystocele. No evidence of hydronephrosis. DATA REPOSITORY:
== END 2025-01-17 01:11 ==
LOC: DI 00:51
PROVIDERS: PCP Family Medicine; Visit Provider Nurse Practitioner Gerontology
DX: M62.89 Other specified disorders of muscle (principal); R34 Anuria and oliguria
CPT/HCPCS: 76770

== ENCOUNTER → 2025-01-27 13:50 | Outpatient (BNVA) | payer MEDICARE, BC, SELFPAY | PROVIDERS: PCP Family Medicine; Visit Provider Nurse Practitioner Gerontology | DX: M62.89 Other specified disorders of muscle (principal); N39.0 Urinary tract infection, site not specified; N32.89 Other specified disorders of bladder; B96.20 Unspecified Escherichia coli [E. coli] as the cause of diseases classified elsewhere; B96.89 Other specified bacterial agents as the cause of diseases classified elsewhere | CPT/HCPCS: 81003; 99214 ==

== ENCOUNTER 2025-01-27 14:12 | Outpatient (REF) | payer MEDICARE, BC, SELFPAY | END 2025-01-27 14:13 | disposition home or self-care (01) | LOC: LBN 14:12 | PROVIDERS: PCP Family Medicine; Visit Provider Nurse Practitioner Gerontology | DX: N39.0 Urinary tract infection, site not specified (principal); M62.89 Other specified disorders of muscle; N32.89 Other specified disorders of bladder | CPT/HCPCS: 87077; 87086; 87186 ==

== ENCOUNTER → 2025-03-04 14:55 | Outpatient (BNVA) | payer MEDICARE, BC, SELFPAY | PROVIDERS: PCP Family Medicine; Visit Provider Nurse Practitioner Gerontology | DX: M62.89 Other specified disorders of muscle (principal); N39.0 Urinary tract infection, site not specified; N32.89 Other specified disorders of bladder; G70.00 Myasthenia gravis without (acute) exacerbation | CPT/HCPCS: 81003; 99214 ==

== ENCOUNTER → 2025-03-11 12:29 | Outpatient (BNVA) | payer MEDICARE, BC, SELFPAY | PROVIDERS: PCP Family Medicine; Referring Provider Family Medicine; Visit Provider Psychiatry & Neurology Neurology | DX: G70.00 Myasthenia gravis without (acute) exacerbation (principal); M21.372 Foot drop, left foot; R26.89 Other abnormalities of gait and mobility | CPT/HCPCS: 99214 ==

== ENCOUNTER → 2025-05-05 13:58 | Outpatient (BNVA) | payer MEDICARE, BC, SELFPAY | PROVIDERS: PCP Family Medicine; Visit Provider Nurse Practitioner Gerontology | DX: N39.0 Urinary tract infection, site not specified (principal); M62.89 Other specified disorders of muscle; N32.89 Other specified disorders of bladder; R35.0 Frequency of micturition; B96.89 Other specified bacterial agents as the cause of diseases classified elsewhere | CPT/HCPCS: 99213; 81002 ==

== ENCOUNTER 2025-05-05 19:33 | Outpatient (REF) | payer MEDICARE, BC, SELFPAY | END 2025-05-05 19:34 | disposition home or self-care (01) | LOC: LBN 19:33 | PROVIDERS: PCP Family Medicine; Visit Provider Nurse Practitioner Gerontology | DX: N39.0 Urinary tract infection, site not specified (principal); R82.89 Other abnormal findings on cytological and histological examination of urine | CPT/HCPCS: 87086 ==

== ENCOUNTER 2025-05-20 16:30 | Outpatient (REF) | payer MEDICARE, BC, SELFPAY ==
[2025-05-20 13:19] LABS: Glucose Negative (Negative)
[2025-05-20 13:33] LABS: C & S Indicated? Yes; WBC 20-50 HPF (0-5)
== END 2025-05-20 16:31 | disposition home or self-care (01) ==
LOC: LBN 16:30
PROVIDERS: PCP Family Medicine; Visit Provider Family Medicine
DX: N39.0 Urinary tract infection, site not specified (principal)
CPT/HCPCS: 81003; 81015; 87086

== ENCOUNTER → 2025-07-29 08:40 | Outpatient (BNVA) | payer MEDICARE, BC, SELFPAY | PROVIDERS: PCP Family Medicine; Referring Provider Family Medicine; Visit Provider Psychiatry & Neurology Neurology | DX: G70.00 Myasthenia gravis without (acute) exacerbation (principal); M21.372 Foot drop, left foot; R26.89 Other abnormalities of gait and mobility | CPT/HCPCS: 99213 ==

== ENCOUNTER 2025-08-06 17:57 | Outpatient (REF) | payer MEDICARE, BC, SELFPAY ==
[2025-08-06 15:02] LABS: Glucose Negative (Negative)
[2025-08-06 15:17] LABS: RBC 0-2 HPF (0-2); WBC 20-50 HPF (0-5)
== END 2025-08-06 17:58 | disposition home or self-care (01) ==
LOC: LBN 17:57
PROVIDERS: PCP Family Medicine; Visit Provider Nurse Practitioner Gerontology
DX: R31.0 Gross hematuria (principal); N32.89 Other specified disorders of bladder; R30.0 Dysuria; N39.0 Urinary tract infection, site not specified
CPT/HCPCS: 81003; 81015; 87086

== ENCOUNTER → 2025-08-28 14:46 | Outpatient (BNVA) | payer MEDICARE, BC, SELFPAY | PROVIDERS: PCP Family Medicine; Referring Provider Family Medicine; Visit Provider Nurse Practitioner Gerontology | DX: M62.89 Other specified disorders of muscle (principal); N39.0 Urinary tract infection, site not specified; N32.89 Other specified disorders of bladder | CPT/HCPCS: 99213; 81002 ==